=== PATIENT | male | born 1945 | race Caucasian/White ===

== ENCOUNTER 2017-01-20 16:56 | Inpatient (IN) | payer OTHER ==
[~2017-01-20] VITALS: Ht 175.3 cm; Wt 76.9 kg
--- NOTE | 2017-01-20 17:34 | EMERGENCY ROOM VISIT NOTE ---
History Report prepared by Suri: Carlito Singleton Under the Supervision of: Dr. Alyson Diamond D.O. First contact with patient: 17:16 Chief Complaint: SWELLING TO EXTREMITY Stated Complaint: EDEMA History of Present Illness The patient is a 71 year old male who presents to the Emergency Room with complaints of worsening bilateral feet swelling that started around 10 days ago. He says that the swelling has particularly worsened in the past couple days. The patient says that he had similar swelling in the past, and was hospitalized, but he does not remember what the swelling was from. The patient denies any fevers, chills, urinary symptoms, or bowel problems. He notes that he is chronically short of breath from smoking, and he does not walk around much due to that. He has a history of 2 heart attacks, and has a defibrillator and pacemaker. He does not have a history of CHF. The patient says he has has no trouble with his blood pressure, but he does not know whether he takes blood pressure medication. He does take Aspirin daily, and he wears oxygen at home. He states that he has tried a nebulizer in the past, but it did not help his breathing. He is a smoker. Source of History: patient Onset: 10 days ago Position: foot (bilateral) Quality: other (swelling) Timing: worsening Associated Symptoms: No chills, No fevers, No urinary symptoms Note: Associated symptoms: Chronically short of breath. Denies bowel problems. Review of Systems See HPI for pertinent positives & negatives. A total of 10 systems reviewed and were otherwise negative. Past Medical & Surgical Medical Problems: (1) Anemia (2) CAD (coronary artery disease) (3) CHF (congestive heart failure) (4) CKD (chronic kidney disease) (5) COPD (chronic obstructive pulmonary disease) (6) DM2 (diabetes mellitus, type 2) (7) Heart attack (8) HLD (hyperlipidemia) (9) Pacemaker Surgical Problems: (1) H/O knee surgery (2) H/O rhinoplasty (3) History of appendectomy (4) History of hip surgery Family History FHx: cancer Heart disease Social History Smoking Status: Current Every Day Smoker Alcohol Use: occasionally Marital Status: Housing Status: lives alone Occupation Status: retired Current/Historical Medications Scheduled Ascorbic Acid (Vitamin C), 500 MG PO BID Aspirin (Ecotrin), 325 MG PO DAILY Carvedilol (Coreg), 3.125 MG PO BID Cholecalciferol (Vitamin D3), 1,000 INTER.UNIT PO DAILY Digoxin (Digoxin), 0.125 MG PO MWF Ferrous Sulfate (Iron), 325 MG PO BID Furosemide (Lasix), 40 MG PO DAILY Hydralazine HCl (Hydralazine HCl), 25 MG PO TID Omeprazole (Prilosec), 20 MG PO DAILY Simvastatin (Zocor), 20 MG PO QPM Tamsulosin HCl (Tamsulosin HCl), 0.4 MG PO HS Tiotropium [place] (Spiriva Handihaler), 1 CAP INH DAILY Allergies Coded Allergies: No Known Allergies (Unverified , 01/20/17) Physical Exam Vital Signs Date Time Temp Pulse Resp B/P Pulse Ox O2 Delivery O2 Flow Rate FiO2 01/20/17 20:11 80 22 126/59 94 Room Air 01/20/17 18:09 72 22 130/83 94 Room Air 01/20/17 17:06 72 01/20/17 17:03 36.7 75 21 121/69 96 Room Air Physical Exam GENERAL: alert, well appearing, well nourished, no distress, non-toxic. Smells of tobacco smoke. EYE EXAM: normal conjunctiva, PERRL and EOM's grossly intact OROPHARYNX: no exudate, no erythema, lips, buccal mucosa, and tongue normal and mucous membranes are moist NECK: supple, no nuchal rigidity, no adenopathy, non-tender LUNGS: Decreased breath sounds with scattered faint expiratory wheezing. HEART: no murmurs, S1 normal and S2 normal ABDOMEN: abdomen soft, non-tender, normo-active bowel sounds, no masses, no rebound or guarding. BACK: Back is symmetrical on inspection and there is no deformity, no midline tenderness, no CVA tenderness. SKIN: no rashes and no bruising UPPER EXTREMITIES: upper extremities are grossly normal. LOWER EXTREMITIES: 2+ lower extremity edema. NEURO EXAM: Normal sensorium, cranial nerves II-XII grossly intact, normal speech, no gross weakness of arms, no gross weakness of legs. No drift. Finger to nose intact. Gross sensation intact. Medical Decision & Procedures ER Provider Diagnostic Interpretation: Xray results per the radiologist and my interpretation. Other results have been interpreted by the radiologist and reviewed by me. BILATERAL LOWER EXTREMITY VENOUS DOPPLER CLINICAL HISTORY: Lower extremity edema. COMPARISON STUDY: No previous studies for comparison. TECHNIQUE: Sonography of the deep venous system of the bilateral lower extremities was performed. Compression and augmentation were evaluated. FINDINGS: The bilateral common femoral, superficial femoral and popliteal veins were compressible. Augmentation was normal. Flow was shown within the deep calf vessels. IMPRESSION: No evidence of deep venous thrombus within the bilateral lower extremities. Electronically signed by: Rico Bravo M.D. 01/20/2017 7:03 PM Dictated Date/Time: 01/20/2017 7:02 PM CHEST ONE VIEW PORTABLE CLINICAL HISTORY: Shortness of breath. COMPARISON STUDY: No previous studies for comparison. FINDINGS: A left subclavian biventricular pacer is in place. There is moderate cardiomegaly. No pneumothorax is present. There is a trace right pleural effusion. Mild pulmonary edema is present. Linear bilateral opacities favor atelectasis. IMPRESSION: 1. Moderate cardiomegaly with mild pulmonary edema. 2. Trace right pleural effusion. Electronically signed by: Rico Bravo M.D. 01/20/2017 6:13 PM Dictated Date/Time: 01/20/2017 6:11 PM Laboratory Results 01/20/17 18:00 Red Blood Count 2.76, Mean Corpuscular Volume 108.7, Mean Corpuscular Hemoglobin 35.1, Mean Corpuscular Hemoglobin Concent 32.3, Mean Platelet Volume 10.0, Neutrophils (%) (Auto) 80.7, Lymphocytes (%) (Auto) 13.6, Monocytes (%) ( Auto) 4.3, Eosinophils (%) (Auto) 0.8, Basophils (%) (Auto) 0.2, Neutrophils # ( Auto) 3.91, Lymphocytes # (Auto) 0.66, Monocytes # (Auto) 0.21, Eosinophils # ( Auto) 0.04, Basophils # (Auto) 0.01 01/20/17 18:00 Test 01/20/17 18:00 White Blood Count 4.85 K/uL (4.8-10.8) Red Blood Count 2.76 M/uL (4.7-6.1) Hemoglobin 9.7 g/dL (14.0-18.0) Hematocrit 30.0 % (42-52) Mean Corpuscular Volume 108.7 fL (80-100) Mean Corpuscular Hemoglobin 35.1 pg (25-34) Mean Corpuscular Hemoglobin Concent 32.3 g/dl (32-36) Platelet Count 104 K/uL (130-400) Mean Platelet Volume 10.0 fL (7.4-10.4) Neutrophils (%) (Auto) 80.7 % Lymphocytes (%) (Auto) 13.6 % Monocytes (%) (Auto) 4.3 % Eosinophils (%) (Auto) 0.8 % Basophils (%) (Auto) 0.2 % Neutrophils # (Auto) 3.91 K/uL (1.4-6.5) Lymphocytes # (Auto) 0.66 K/uL (1.2-3.4) Monocytes # (Auto) 0.21 K/uL (0.11-0.59) Eosinophils # (Auto) 0.04 K/uL (0-0.5) Basophils # (Auto) 0.01 K/uL (0-0.2) RDW Standard Deviation 68.4 fL (36.4-46.3) RDW Coefficient of Variation 17.4 % (11.5-14.5) Immature Granulocyte % (Auto) 0.4 % Immature Granulocyte # (Auto) 0.02 K/uL (0.00-0.02) Anion Gap 7.0 mmol/L (3-11) Est Creatinine Clear Calc Drug Dose 33.8 ml/min Estimated GFR () 33.9 Estimated GFR (Non- 29.3 BUN/Creatinine Ratio 18.1 (10-20) Calcium Level 8.8 mg/dl (8.5-10.1) Troponin I 0.061 ng/ml (0-0.045) Pro-B-Type Natriuretic Peptide > 56514 pg/ml (0-900) Digoxin Level 0.6 ng/ml (0.8-2.0) Laboratory results per my review. Medications Administered Medications (Trade) Dose Ordered Sig/Sonny Route Start Time Stop Time Status Last Admin Dose Admin Furosemide/Syringe (Lasix Inj/ Syringe) 4 ml @ 4 mls/min ONE STAT IV 01/20/17 18:51 01/20/17 18:53 DC 01/20/17 20:06 4 MLS/MIN Nitroglycerin (Nitroglycerin 2% Oint) 0.5 inch NOW STAT EXT 01/20/17 18:53 4/28/17 18:54 DC 01/20/17 20:06 0.5 INCH ECG Indication: other (swelling to extremity) Rate (beats per minute): 71 Rhythm: normal sinus Findings: PVC, no acute ischemic change, other (normal axis, slight intraventricular conduction delay. QTC normal) Comparison ECG Date: no prior available ED Course 1723: The patient was evaluated in room B3B. A complete history and physical exam was performed. 1850: Ordered Ecotrin Tab 325 mg PO, Furosemide 40mg/Syringe 40 mg/Syringe 4 ml @ 4 mls/min IV. 1849: I reevaluated the patient and he has a positive troponin. The patient verbally expressed understanding and agreement of the treatment plan. The patient will be evaluated for further treatment. 1852: Ordered Nitroglycerin 2% Oint 0.5 inch EXT. 1914: I discussed the patient with Dr. Deluca - [facility] hospitalist - he will evaluate the patient for further treatment. 1955; Old records have now been faxed and available for review. Medical Decision Differential diagnosis includes but is not limited to: CHF, renal failure, DVT, cellulitis, lymphedema. Patient poor historian and no records available in EMR initially. Patient's only complaint was lower extremity edema which she stated had been worsening over the last week to 10 days. No evidence of cellulitis or trauma. Patient's ultrasound negative for DVT, however labs revealed elevated BNP and elevated troponin. Given patient's history of a ICD/by the pacemaker is indicated on his medical ID bracelet, patient likely with a depressed ejection fraction and history of congestive heart failure. Given description of worsening lower extremity edema as well as intermittent shortness of breath with exertion, likely patient with a component of acute on chronic congestive heart failure. Patient given dose of Lasix in the emergency room. The patient's troponin is more likely related to the congestive heart failure and chronic kidney disease, patient given an aspirin and nitroglycerin as a precaution. Patient with no chest pain or shortness of breath while at rest. No other evidence to suggest occult infection. Significant efforts made by staff to try and obtain outside medical records. Upon their arrival these were reviewed and patient found to have a history of chronic kidney disease as well as significant cardiac history. These are placed in the patient's chart to aid the admitting team. Patient otherwise with stable vitals here. Doubt PE, dissection, tamponade, small effusions noted on chest x-ray. Consults Time Called: 1909 Consulting Physician: Dr. Yosi Zaidi hospitalist Returned Call: 1914 I discussed the patient with Dr. Yosi Zaidi hospitalist - he will evaluate the patient for further treatment. Impression Primary Impression: Lower extremity edema Additional Impressions: CHF (congestive heart failure) Elevated troponin Acute renal failure Scribe Attestation The scribe's documentation has been prepared under my direction and personally reviewed by me in its entirety. I confirm that the note above accurately reflects all work, treatment, procedures, and medical decision making performed by me. Departure Information Dispostion Being Evaluated By Hospitalist Patient Instructions [facility] Problem Qualifiers Primary Impression: Lower extremity edema Laterality: bilateral Qualified Codes: R60.0 - Localized edema Additional Impressions: CHF (congestive heart failure) Congestive heart failure type: combined Congestive heart failure chronicity: acute on chronic Qualified Codes: I50.43 - Acute on chronic combined systolic (congestive) and diastolic (congestive) heart failure Acute renal failure Acute renal failure type: unspecified Qualified Codes: N17.9 - Acute kidney failure, unspecified
[2017-01-20] MEDS ORDERED: ASCA500 PO (18:03)
[2017-01-20] MEDS ORDERED: ASPI-560 PO (18:03)
[2017-01-20] MEDS ORDERED: FERR1TAB23 PO (18:03)
--- NOTE | 2017-01-20 18:14 | DIAGNOSTIC IMAGING REPORT ---
CHEST ONE VIEW PORTABLE CLINICAL HISTORY: Shortness of breath. COMPARISON STUDY: No previous studies for comparison. FINDINGS: A left subclavian biventricular pacer is in place. There is moderate cardiomegaly. No pneumothorax is present. There is a trace right pleural effusion. Mild pulmonary edema is present. Linear bilateral opacities favor atelectasis. IMPRESSION: 1. Moderate cardiomegaly with mild pulmonary edema. 2. Trace right pleural effusion. Electronically signed by: Rico Bravo M.D. 01/20/2017 6:13 PM Dictated Date/Time: 01/20/2017 6:11 PM
[2017-01-20 18:15] LABS: BASO % 0.2 %; BASO ABS # 0.01 K/uL (0-0.2); COMPLETE YES; EOS % 0.8 %; IG% 0.4 %; LYMPH % 13.6 %; LYMPH ABS # 0.66 K/uL (1.2-3.4); MEAN CELL VOLUME 108.7 fL (80-100); MEAN CORPUSCULAR HEMOGLOBIN 35.1 pg (25-34); MEAN CORPUSCULAR HGB CONC 32.3 g/dl (32-36); MONO % 4.3 %; NEUT % 80.7 %; PLATELET COUNT 104 K/uL (130-400); RED BLOOD COUNT 2.76 M/uL (4.7-6.1); WHITE BLOOD COUNT 4.85 K/uL (4.8-10.8)
[2017-01-20 18:31] LABS: BLOOD UREA NITROGEN 40 mg/dl (7-18); BUN/CREATININE RATIO 18.1 (10-20); CALCIUM 8.8 mg/dl (8.5-10.1); CARBON DIOXIDE 25 mmol/L (21-32); CHLORIDE 111 mmol/L (98-107); GLUCOSE 93 mg/dl (70-99); SODIUM 143 mmol/L (136-145)
[2017-01-20] MEDS ORDERED: ASPIRIN 325 MG ECTAB PO STA (18:51)
[2017-01-20] MEDS ORDERED: FUROSEMIDE INJ 40 MG in SYRINGE 0 ML IV STA (18:51)
[2017-01-20] MEDS ORDERED: NITROGLYCERIN OINT 2% 1GM PACKET EXT STA (18:53)
--- NOTE | 2017-01-20 19:04 | DIAGNOSTIC IMAGING REPORT ---
BILATERAL LOWER EXTREMITY VENOUS DOPPLER CLINICAL HISTORY: Lower extremity edema. COMPARISON STUDY: No previous studies for comparison. TECHNIQUE: Sonography of the deep venous system of the bilateral lower extremities was performed. Compression and augmentation were evaluated. FINDINGS: The bilateral common femoral, superficial femoral and popliteal veins were compressible. Augmentation was normal. Flow was shown within the deep calf vessels. IMPRESSION: No evidence of deep venous thrombus within the bilateral lower extremities. Electronically signed by: Rico Bravo M.D. 01/20/2017 7:03 PM Dictated Date/Time: 01/20/2017 7:02 PM
[2017-01-20] MEDS ORDERED: FURO-85 PO (19:49)
[2017-01-20] MEDS ORDERED: CARV6.25 PO (19:49)
[2017-01-20] MEDS ORDERED: CHOL1000 PO (19:49)
[2017-01-20] MEDS ORDERED: LNX125 PO (19:49)
[2017-01-20] MEDS ORDERED: SPRIN/30 INH (19:49)
[2017-01-20] MEDS ORDERED: HYDR-4716 PO (19:49)
[2017-01-20] MEDS ORDERED: SIMV20TA2 PO (19:49)
[2017-01-20] MEDS ORDERED: PRLSR20 PO (19:49)
[2017-01-20] MEDS ORDERED: FLM4 PO (19:49)
[2017-01-20] MEDS ORDERED: FURO40TA3 PO (19:57)
[2017-01-20] MEDS ORDERED: NITROGLYCERIN 0.4 MG SL PER TAB CHARGE SL PRN (20:00)
[2017-01-20] MEDS ORDERED: ACETAMINOPHEN 325 MG TAB PO PRN (20:00)
[2017-01-20] MEDS ORDERED: ONDANSETRON INJ 2 MG/ML 2 ML VIAL IV PRN (20:00)
--- NOTE | 2017-01-20 20:23 | History and Physical ---
History & Physical Date & Time of Service: Jan 20, 2017 at 20:04 Chief Complaint: EDEMA Primary Care Physician: No Doctor, Assigned History of Present Illness Source: patient, clinic records, hospital records Patient seen and examined. 71 year old male with PMHx of CAD, CHF s/p ICD, diet controlled DM2, HTN, HLD, COPD, tobacco abuse presents to the ED complaining of leg swelling x 3 days. [facility] noticed his BLLE edema and referred him to the ED for further workup. Patient reports in the last several weeks he has started to notice a little increased swelling however in the last three days he reports it has gotten much worse. His shoes do not fit and he has been wearing sandals. He states he has been doubling his lasix and he continues to have the edema. He reports chronic SOB that he attributes to his COPD and continued smoking. He denies fevers, chills, URI symptoms, chest pain, nausea, vomiting, diarrhea, dysuria, calf pain. He reports he just recently learned that ramen noodles have salt in them, before that he was eating them on about a daily basis. He does not watch his fluid intake. He does not weigh himself often but believes he has gained weight. He follows with the local [facility] for primary care and sees the [facility] in [place] yearly for cardiology. In the ED VS are stable, BNP >27654, Troponin is 0.01. EKG is paced rhythm. He received Lasix, Nitro and Aspirin. He is resting comfortably. He will be admitted for further workup and treatment. Past Medical/Surgical History Medical Problems: (1) Anemia Status: Chronic (2) CAD (coronary artery disease) Status: Chronic (3) CHF (congestive heart failure) Status: Chronic (4) CKD (chronic kidney disease) Status: Chronic (5) COPD (chronic obstructive pulmonary disease) Status: Chronic (6) DM2 (diabetes mellitus, type 2) Status: Chronic (7) Heart attack Status: Resolved (8) HLD (hyperlipidemia) Status: Chronic (9) Pacemaker Status: Chronic Surgical Problems: (1) H/O knee surgery Status: Chronic (2) H/O rhinoplasty Status: Chronic (3) History of appendectomy Status: Chronic (4) History of hip surgery Status: Chronic Family History FHx: cancer Heart disease Social History Smoking Status: Current Every Day Smoker Alcohol Use: occasionally Marital Status: Housing status: lives alone Occupational Status: retired Allergies Coded Allergies: No Known Allergies (Unverified , 01/20/17) Home Medications Scheduled Ascorbic Acid (Vitamin C), 500 MG PO BID Aspirin (Ecotrin), 325 MG PO DAILY Carvedilol (Coreg), 3.125 MG PO BID Cholecalciferol (Vitamin D3), 1,000 INTER.UNIT PO DAILY Digoxin (Digoxin), 0.125 MG PO MWF Ferrous Sulfate (Iron), 325 MG PO BID Furosemide (Lasix), 40 MG PO DAILY Hydralazine HCl (Hydralazine HCl), 25 MG PO TID Omeprazole (Prilosec), 20 MG PO DAILY Simvastatin (Zocor), 20 MG PO QPM Tamsulosin HCl (Tamsulosin HCl), 0.4 MG PO HS Tiotropium [place] (Spiriva Handihaler), 1 CAP INH DAILY Review of Systems Constitutional: No chills, No fever Eyes: No worsening of vision ENT: No nasal symptoms Respiratory: + shortness of breath, No cough Cardiovascular: + edema, No chest pain, No palpitations Abdomen: No constipation, No diarrhea, No nausea, No pain, No vomiting Musculoskeletal: + swelling, No calf pain Genitourinary - Male: No dysuria Neurologic: No numbness/tingling, No vertigo Psychiatric: No depression symptoms Endocrine: No excessive thirst, No fatigue Hematologic / Lymphatic: No abnormal bleeding/bruising, No clotting problems Integumentary: No itch, No rash Allergic / Immunologic: No environmental allergies Physical Exam Vital Signs Date Time Temp Pulse Resp B/P Pulse Ox O2 Delivery O2 Flow Rate FiO2 01/20/17 18:09 72 22 130/83 94 Room Air 01/20/17 17:03 36.7 75 21 121/69 96 Room Air General Appearance: + pertinent finding (Very pleasant WD/WN 71 year old male lying in bed in NAD ) Head: normocephalic, atraumatic Eyes: PERRL, EOMI, sclerae normal ENT: hearing grossly normal, pharynx normal Neck: supple, no JVD Respiratory/Chest: chest non-tender, no respiratory distress, no accessory muscle use, + pertinent finding (Coarse breath sounds, trace rhonchi/wheezes likely secondary to COPD/tobacco abuse ) Cardiovascular: regular rate, rhythm, no gallop, no JVD, no murmur, normal peripheral pulses Abdomen/GI: normal bowel sounds, non tender, soft Back: normal inspection, no muscle spasm Extremities/Musculoskelatal: no calf tenderness, normal capillary refill, + pedal edema (+2, BL ) Neurologic/Psych: no motor/sensory deficits, alert, oriented x 3 Skin: normal color, warm/dry, no rash Lymphatic: no adenopathy Diagnostics Laboratory Results Results Past 24 Hours Test 01/20/17 18:00 Range/Units White Blood Count 4.85 4.8-10.8 K/uL Red Blood Count 2.76 4.7-6.1 M/uL Hemoglobin 9.7 14.0-18.0 g/dL Hematocrit 30.0 42-52 % Mean Corpuscular Volume 108.7 80-100 fL Mean Corpuscular Hemoglobin 35.1 25-34 pg Mean Corpuscular Hemoglobin Concent 32.3 32-36 g/dl Platelet Count 104 130-400 K/uL Mean Platelet Volume 10.0 7.4-10.4 fL Neutrophils (%) (Auto) 80.7 % Lymphocytes (%) (Auto) 13.6 % Monocytes (%) (Auto) 4.3 % Eosinophils (%) (Auto) 0.8 % Basophils (%) (Auto) 0.2 % Neutrophils # (Auto) 3.91 1.4-6.5 K/uL Lymphocytes # (Auto) 0.66 1.2-3.4 K/uL Monocytes # (Auto) 0.21 0.11-0.59 K/uL Eosinophils # (Auto) 0.04 0-0.5 K/uL Basophils # (Auto) 0.01 0-0.2 K/uL RDW Standard Deviation 68.4 36.4-46.3 fL RDW Coefficient of Variation 17.4 11.5-14.5 % Immature Granulocyte % (Auto) 0.4 % Immature Granulocyte # (Auto) 0.02 0.00-0.02 K/uL Sodium Level 143 136-145 mmol/L Potassium Level 4.0 3.5-5.1 mmol/L Chloride Level 111 98-107 mmol/L Carbon Dioxide Level 25 21-32 mmol/L Anion Gap 7.0 3-11 mmol/L Blood Urea Nitrogen 40 7-18 mg/dl Creatinine 2.20 0.60-1.40 mg/dl Est Creatinine Clear Calc Drug Dose 33.8 ml/min Estimated GFR () 33.9 Estimated GFR (Non- 29.3 BUN/Creatinine Ratio 18.1 10-20 Random Glucose 93 70-99 mg/dl Calcium Level 8.8 8.5-10.1 mg/dl Troponin I 0.061 0-0.045 ng/ml Pro-B-Type Natriuretic Peptide > 87490 0-900 pg/ml Diagnostic Radiology CXR Per radiologist read: IMPRESSION: 1. Moderate cardiomegaly with mild pulmonary edema. 2. Trace right pleural effusion. DOPPLER US Per radiologist read: IMPRESSION: No evidence of deep venous thrombus within the bilateral lower extremities. EKG Dual paced rhythm 70 BPM, QTc 455 Impression Assessment and Plan 71 year old male who follows with the [facility] presents to the ED complaining of worsening peripheral edema despite increased lasix use x 3 day s PERIPHERAL EDEMA likely ACUTE ON CHRONIC CHF EXACERBATION -Admit to tele -[facility] severe systolic dysfunction s/p ICD, taking Lasix 40mg daily but increase to 80mg daily this week. unsure of Diastolic component of CHF -Presents with BNP >57086, peripheral edema. CXR with mild pulmonary congestion , Doppler US negative for DVT -Update echo -interrogate pacemaker -serial Jose Antonio, EKGs -Lasix 40mg IV given in ED will continue with 40mg IV BID -continue BB, digoxin -check digoxin level -I&Os, daily weights -AHA, low sodium diet, 2000ml fluid restriction -cardiology consult placed for further recommendations -CBC, PRP, Mg in AM -Monitor renal function closely - has underlying CKD ELEVATED TROPONIN H/O CAD -denies chest pain, new SOB -EKG paced rhythm -Troponin 0.061 -? troponin leak -Serial Jose Antonio, EKGs -update Echo -continue ASA, Statin, BB -monitor in tele CKD STAGE 3 -Crea 2.2 baseline when compared to [facility] -follow PRP -avoid nephrotoxic agents as able ANEMIA OF CHRONIC DISEASE -Hgb 9.5 baseline per [facility] records on paper chart -continue iron, vitamin C -follow H&H HTN -stable -continue Hydralazine, BB DIET CONTROLLED DM2 -update a1c -consistent carb diet TOBACCO ABUSE/COPD -Cessation counseling given -Nicotine patch ordered -continue home inhalers GERD -continue PPI BPH -continue Flomax DVT PROPHYLAXIS: Sq heparin CODE STATUS: FULL CODE DISPO:In my clinical judgment this beneficiary meets acute admission criteria, established by [facility], that includes being hospitalized through two midnights. Patient seen in collaboration with Dr. Deluca Attending Note: Patient is a 71 yr old male with PMH of CAD, CHF S/P ICD, CKD, COPD and other comorbidities presents from [facility] for evaluation of worsening B/L Leg swelling and SOB on exertion. He is on oxygen 2l NC at baseline but not very complaint. He has been doubling his oral diuretics at home since last 3 days. He does not watch his fluid/salt intake. His BNP is elevated and CXR is consistent with mild pulmonary edema. Venous doppler is negative for DVT Physical Exam: Vitals signs as noted above General Appearance:Moderately built and nourished, no apparent distress Head: normocephalic, Atraumatic Respiratory/Chest: Coarse breath sounds, No accessory muscle use Cardiovascular: S1, S2, No murmur Abdomen/GI:Soft, Non tender, Bowel sounds present Extremities/Musculoskelatal:+ B/L LE edema Neurologic/Psych:AAOX3, grossly no focal neurological deficits Assessment and Plan: Acute on chronic CHF Exacerbation Start IV Lasix 40 mg BID Check ECHO I/Os, daily weight Monitor electrolytes Fluid/Salt restriction Oxygen support continue BB, digoxin Elevated Troponin: Denies chest pain Insetting of CKD and CHF Trend troponin Check Resting ECHO for wall motion abnormality continue ASA, Statin, BB I personally reviewed the record. Patient is interviewed and examined at bedside. Patient's care is coordinated with Moira Benites PA-C. Please refer to the documentation above for details of patient's presentation and for discussion of other issues. VTE Prophylaxis VTE Risk Assessment Done? Y/N: Yes Risk Level: Moderate
[2017-01-20 20:59] VITALS: BP 132/67; PULSE 77; TEMP 36.5; O2SAT 94; Ht 175.3 cm; Wt 76.9 kg
[2017-01-20 21:35] LABS: INR 1.1 (0.9-1.1); PROTHROMBIN TIME (PATIENT) 12.1 SECONDS (9.0-12.0)
[2017-01-20] MEDS: ASCORBIC ACID 500 MG TAB PO SCH (22:56)
[2017-01-20] MEDS: SIMVASTATIN 20 MG TAB PO SCH (22:56)
[2017-01-20] MEDS: CARVEDILOL 3.125 MG TAB PO SCH (22:56)
[2017-01-20] MEDS: TAMSULOSIN HCL 0.4 MG CAP PO SCH (22:56)
[2017-01-20] MEDS: FERROUS SULFATE 325 MG TAB PO SCH (22:56)
[2017-01-20 23:18] LABS: URINE APPEARANCE CLEAR (CLEAR); URINE BILIRUBIN NEG (NEG); URINE COLOR YELLOW; URINE EPITHELIAL CELL AUTO 0-5 /lpf (0-5); URINE NITRITE NEG (NEG); URINE PH 5.5 (4.5-7.5); URINE SPECIFIC GRAVITY 1.008 (1.000-1.030); UROBILINOGEN NEG (NEG); ZZUR CULT IF INDIC CLEAN CATCH NO
[2017-01-20] MEDS: HEPARIN SOD 5000 UNIT/0.5 ML CARP SQ SCH (23:33)
[2017-01-20 23:35] VITALS: BP 109/56; PULSE 77; TEMP 36; O2SAT 93
[2017-01-20 23:35] LABS: MANUAL MICROSCOPIC REQUIRED? NO; REVIEW REQ? NO
[2017-01-21 01:19] LABS: CKMB/CK RATIO 1.5 (0-3.0)
[2017-01-21 03:56] VITALS: BP 115/64; PULSE 70; TEMP 36.6; O2SAT 93
[2017-01-21] MEDS ORDERED: FUROSEMIDE 40 MG/4 ML VIAL ONE (04:08)
[2017-01-21] MEDS ORDERED: ALBUT/IPRATROP 3MG/0.5MG NEB 3 ML VIAL INH PRN (04:15)
[2017-01-21] MEDS ORDERED: FUROSEMIDE INJ 40 MG in SYRINGE 0 ML IV ONE (04:15)
[2017-01-21] MEDS: HEPARIN SOD 5000 UNIT/0.5 ML CARP SQ SCH ×3 (05:47→20:53)
[2017-01-21 06:42] LABS: HEMATOCRIT 27.9 % (42-52); MEAN CELL VOLUME 107.7 fL (80-100); MEAN CORPUSCULAR HEMOGLOBIN 35.1 pg (25-34); MEAN CORPUSCULAR HGB CONC 32.6 g/dl (32-36); MEAN PLATELET VOLUME 11.5 fL (7.4-10.4); PLATELET COUNT 112 K/uL (130-400); RED BLOOD COUNT 2.59 M/uL (4.7-6.1); WHITE BLOOD COUNT 4.51 K/uL (4.8-10.8)
[2017-01-21 07:19] LABS: BUN/CREATININE RATIO 20.7 (10-20); CALCIUM 8.5 mg/dl (8.5-10.1); CREATININE 2.1 mg/dl (0.60-1.40); MAGNESIUM 2.2 mg/dl (1.8-2.4)
[2017-01-21 07:23] LABS: ESTIMATED AVERAGE GLUCOSE 126 mg/dl; HA1C FLAG Normal (Normal)
[2017-01-21 07:30] VITALS: BP 109/63; PULSE 76; TEMP 36.7; O2SAT 95
[2017-01-21 07:30] LABS: CHOLESTEROL/HDL RATIO 2.3; CKMB/CK RATIO 1.7 (0-3.0)
[2017-01-21] MEDS ORDERED: PNEUMOCOCCAL ADMINISTRATION CHARGE ONE (08:00)
[2017-01-21] MEDS ORDERED: PNEUMOCOCCAL POLYSACCHARIDES 25 MCG/0.5 ML VIAL/SYR IM. ONE (08:00)
[2017-01-21] MEDS: NICOTINE 14 MG/24 HR TDSY TD SCH (09:00)
[2017-01-21] MEDS: TIOTROPIUM BROMIDE 5 PUFF/90 MCG INH INH SCH (09:34)
[2017-01-21] MEDS: FUROSEMIDE INJ 40 MG in SYRINGE 0 ML IV SCH ×2 (09:35→17:26)
[2017-01-21] MEDS: CARVEDILOL 3.125 MG TAB PO SCH ×2 (09:36→20:51)
[2017-01-21] MEDS: ASCORBIC ACID 500 MG TAB PO SCH ×2 (09:36→20:51)
[2017-01-21] MEDS: CHOLECALCIFEROL 1000 INTER.UNIT TAB PO SCH (09:37)
[2017-01-21] MEDS: PANTOprazole SOD 40 MG TAB PO SCH (09:37)
[2017-01-21] MEDS: FERROUS SULFATE 325 MG TAB PO SCH ×2 (09:38→20:51)
[2017-01-21] MEDS: ASPIRIN 325 MG ECTAB PO SCH (09:38)
--- NOTE | 2017-01-21 11:08 | CARDIOLOGY CONSULTATION ---
DATE OF CONSULTATION: 01/21/2017 CONSULTATION FOR: Dyan aviles. REASON FOR CONSULTATION: Shortness of breath. HISTORY OF PRESENT ILLNESS: This is a 71-year-old male patient who has had most of his health care through the ID system in [facility]. He is a type 2 diabetic with a history of hypertension and tobacco associated lung disease. He continues to smoke at least half a pack of cigarettes daily. He has a history of coronary artery disease that dates back to 1994 when he states he had a heart attack. At that time, he states that he had an angioplasty. He states that in 2014, he was scheduled to undergo colonoscopy and instead received an ICD pacemaker at the [facility] in [place]. Recently, he has had increased shortness of breath and dyspnea and he has noted some lower extremity edema. He presented to the Emergency Department and was found to be in congestive heart failure. B-natriuretic peptide was greater than 35,000. His cardiac markers are negative and his EKG shows a paced rhythm. ALLERGIES: No known medical allergies. PAST MEDICAL HISTORY: As described above, he has ischemic heart disease and ischemic cardiomyopathy with an ICD in place. He does not relate a previous history of congestive heart failure. 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 He has tobacco associated COPD and diabetes. SOCIAL HISTORY: He continues to smoke half a pack of cigarettes daily. He is and lives alone. FAMILY MEDICAL HISTORY: Noncontributory. REVIEW OF SYSTEMS: A 10-point review of systems is negative except for the history of chief complaint. PHYSICAL EXAMINATION: GENERAL: He is alert and oriented. VITAL SIGNS: Blood pressure is 110/70 and pulse is regular at 75 beats per minute. He is afebrile. HEENT: He is normocephalic. Pupils are equal and reactive to light. Mucous membranes moist. NECK: The neck veins are distended. Carotids have good upstrokes bilaterally without bruits. Thyroid is nonpalpable. RESPIRATORY: Breath sounds equal bilaterally and clear to auscultation. CARDIOVASCULAR: Heart has a regular rhythm. There is an S4 present. No S3 and no murmurs. GASTROINTESTINAL: Abdomen is soft and nontender without organomegaly. EXTREMITIES: Have pitting edema to the mid calves bilaterally. NEUROLOGIC: Grossly intact. SKIN: Warm to touch. LYMPH NODES: Negative to palpation. IMPRESSION: 1. Congestive heart failure. 2. Ischemic cardiomyopathy. 3. Implantable cardioverter defibrillator. 4. Diabetes mellitus. 5. Cigarette smoking with chronic obstructive pulmonary disease. RECOMMENDATIONS: I would continue to diurese the patient to a dry weight. If his creatinine starts to elevate, then may have nephrology see him. I will review his echocardiogram when it is complete. LUCILA
[2017-01-21 11:13] VITALS: BP 116/65; PULSE 69; TEMP 36.8; O2SAT 96
--- NOTE | 2017-01-21 13:13 | Progress Note ---
Medicine Progress Note Date & Time of Visit: Jan 21, 2017 at 12:59. Subjective Pt was seen and examined Pt lying in bed with no distress he said that his breathing seems a little bit better today Denies any chest pain, palpitation, dizziness Objective Last 8 Hrs Date Time Temp Pulse Resp B/P Pulse Ox O2 Delivery O2 Flow Rate FiO2 01/21/17 11:13 36.8 69 18 116/65 96 01/21/17 08:00 Nasal Cannula 01/21/17 07:30 36.7 76 18 109/63 95 Physical Exam: General- No acute distress Head- atraumatic Eyes- PERRL, EOMI ENT- oropharynx clear Neck- supple, no JVD Lungs- Coarse BS Heart- regular rhythm; no murmur Abdomen- normal bowel sounds, soft Extremities- no calf tenderness, +edema Neuro- alert, oriented x 3; PERRL, EOM Skin- warm & dry Laboratory Results: Last 24 Hours Test 01/20/17 18:00 01/20/17 22:38 01/21/17 00:39 01/21/17 06:23 White Blood Count 4.85 K/uL 4.51 K/uL Red Blood Count 2.76 M/uL 2.59 M/uL Hemoglobin 9.7 g/dL 9.1 g/dL Hematocrit 30.0 % 27.9 % Mean Corpuscular Volume 108.7 fL 107.7 fL Mean Corpuscular Hemoglobin 35.1 pg 35.1 pg Mean Corpuscular Hemoglobin Concent 32.3 g/dl 32.6 g/dl Platelet Count 104 K/uL 112 K/uL Mean Platelet Volume 10.0 fL 11.5 fL Neutrophils (%) (Auto) 80.7 % Lymphocytes (%) (Auto) 13.6 % Monocytes (%) (Auto) 4.3 % Eosinophils (%) (Auto) 0.8 % Basophils (%) (Auto) 0.2 % Neutrophils # (Auto) 3.91 K/uL Lymphocytes # (Auto) 0.66 K/uL Monocytes # (Auto) 0.21 K/uL Eosinophils # (Auto) 0.04 K/uL Basophils # (Auto) 0.01 K/uL RDW Standard Deviation 68.4 fL 68.2 fL RDW Coefficient of Variation 17.4 % 17.4 % Immature Granulocyte % (Auto) 0.4 % Immature Granulocyte # (Auto) 0.02 K/uL Prothrombin Time 12.1 SECONDS Prothromb Time International Ratio 1.1 Activated Partial Thromboplast Time 27.1 SECONDS Partial Thromboplastin Ratio 1.0 Sodium Level 143 mmol/L 145 mmol/L Potassium Level 4.0 mmol/L 4.0 mmol/L Chloride Level 111 mmol/L 111 mmol/L Carbon Dioxide Level 25 mmol/L 25 mmol/L Anion Gap 7.0 mmol/L 9.0 mmol/L Blood Urea Nitrogen 40 mg/dl 44 mg/dl Creatinine 2.20 mg/dl 2.10 mg/dl Est Creatinine Clear Calc Drug Dose 33.8 ml/min 32.7 ml/min Estimated GFR () 33.9 35.9 Estimated GFR (Non- 29.3 31.0 BUN/Creatinine Ratio 18.1 20.7 Random Glucose 93 mg/dl 119 mg/dl Calcium Level 8.8 mg/dl 8.5 mg/dl Troponin I 0.061 ng/ml 0.064 ng/ml 0.053 ng/ml Pro-B-Type Natriuretic Peptide > 05513 pg/ml Digoxin Level 0.6 ng/ml Urine Color YELLOW Urine Appearance CLEAR Urine pH 5.5 Urine Specific [place] 1.008 Urine Protein NEG Urine Glucose (UA) NEG Urine Ketones NEG Urine Occult Blood NEG Urine Nitrite NEG Urine Bilirubin NEG Urine Urobilinogen NEG Urine Leukocyte Esterase TRACE Urine WBC (Auto) 1-5 /hpf Urine RBC (Auto) 0-4 /hpf Urine Hyaline Casts (Auto) 0 /lpf Urine Epithelial Cells (Auto) 0-5 /lpf Urine Bacteria (Auto) NEG Total Creatine Kinase 165 U/L 151 U/L Creatine Kinase MB 2.4 ng/ml 2.6 ng/ml Creatine Kinase MB Ratio 1.5 1.7 Estimated Average Glucose 126 mg/dl Hemoglobin A1c 6.0 % Magnesium Level 2.2 mg/dl Triglycerides Level 35 mg/dl Cholesterol Level 62 mg/dl HDL Cholesterol 27 mg/dl LDL Cholesterol, Calculated 28 mg/dl VLDL Cholesterol, Calculated 7 mg/dl Cholesterol/HDL Ratio 2.3 Test 01/21/17 06:40 Bedside Glucose 128 mg/dl Assessment & Plan ACUTE ON CHRONIC CHF EXACERBATION -Presents with BNP >17932, peripheral edema. CXR with mild pulmonary congestion , Doppler US negative for DVT -interrogate pacemaker -Troponin trending down -Continue IV lasix BID -continue BB, digoxin - Monitor I/O -cardiology on board, recommend to continue diuresis to dry wt -Echo Pending -Monitor BMP - Continue monitor to telemetry ELEVATED TROPONIN possible related to CKD -denies chest pain -EKG paced rhythm -CM trending down - Echo pending CKD STAGE 3 -Crea 2.2 baseline [facility] -follow PRP -avoid nephrotoxic agents as able ANEMIA OF CHRONIC DISEASE Stable continue monitor HTN -stable -continue Hydralazine, BB DIET CONTROLLED DM2 -update a1c -consistent carb diet TOBACCO ABUSE/COPD -Cessation counseling given -Nicotine patch ordered -continue home inhalers GERD -continue PPI BPH -continue Flomax DVT PROPHYLAXIS: Sq heparin CODE STATUS: FULL CODE Consultants: cardio Current Inpatient Medications: Current Inpatient Medications Medications (Trade) Dose Ordered Sig/Sonny Route Start Time Stop Time Status Last Admin Dose Admin Heparin Sodium (Porcine) (Heparin Sq 5000 Unit/0.5ml) 5,000 unit Q8 SQ 01/20/17 22:00 02/19/17 21:59 01/21/17 09:41 5,000 UNIT Acetaminophen (Tylenol Tab) 650 mg Q4H PRN PO 01/20/17 20:00 02/19/17 19:59 Ondansetron HCl (Zofran Inj) 4 mg Q6H PRN IV 01/20/17 20:00 02/19/17 19:59 Nitroglycerin (Nitrostat Tab) 0.4 mg UD PRN SL 01/20/17 20:00 02/19/17 19:59 Ascorbic Acid (Vitamin C Tab) 500 mg BID PO 01/20/17 21:00 02/19/17 20:59 01/21/17 09:36 500 MG Aspirin (Ecotrin Tab) 325 mg DAILY PO 01/21/17 09:00 02/20/17 08:59 01/21/17 09:38 325 MG Carvedilol (Coreg Tab) 3.125 mg BID PO 01/20/17 21:00 02/19/17 20:59 01/21/17 09:36 3.125 MG Cholecalciferol (Vitamin D Tab) 1,000 inter.unit DAILY PO 01/21/17 09:00 02/20/17 08:59 01/21/17 09:37 1,000 INTER.UNIT Digoxin (Lanoxin Tab) 0.125 mg MoWeFr@1600 PO 01/23/17 16:00 02/22/17 15:59 Hydralazine HCl (Apresoline Tab) 25 mg TID PO 01/20/17 21:00 02/19/17 20:59 01/21/17 09:36 25 MG Simvastatin (Zocor Tab) 20 mg QPM PO 01/20/17 21:00 02/19/17 20:59 01/20/17 22:56 20 MG Tamsulosin HCl (Flomax Cap) 0.4 mg HS PO 01/20/17 21:00 02/19/17 20:59 01/20/17 22:56 0.4 MG Tiotropium [place] (Spiriva Handihaler Inhaler) 1 puff DAILY INH 01/21/17 09:00 02/20/17 08:59 01/21/17 09:34 1 PUFF Ferrous Sulfate (Feosol Tab) 325 mg BID PO 01/20/17 21:00 02/19/17 20:59 01/21/17 09:38 325 MG Pantoprazole Sodium 40 mg 40 mg DAILY PO 01/21/17 09:00 02/20/17 08:59 01/21/17 09:37 40 MG Furosemide/Syringe (Lasix Inj/ Syringe) 4 ml @ 4 mls/min BID17 IV 01/21/17 09:00 02/20/17 08:59 01/21/17 09:35 4 MLS/MIN Nicotine (Nicoderm Cq 14MG Patch) 1 patch QAM TD 01/21/17 09:00 02/20/17 08:59 Miscellaneous (Remove Nicoderm Patch) 1 ea HS N/A 01/20/17 21:00 02/19/17 20:59 Albuterol/ Ipratropium (Duoneb) 3 ml Q4R PRN INH 01/21/17 04:15 02/20/17 04:14
--- NOTE | 2017-01-21 13:51 | ECHOCARDIOGRAM REPORT ---
*NOTICE TO RECEIVING CONSTITUTION PARTY AGENCY This information is strictly Confidential and protected under [place] law. [place] law prohibits you from making any further disclosure of this information unless further disclosure is expressly permitted by the written consent of the person to whom it pertains or is authorized by law. A general authorization for the release of medical or other information is not sufficient for this purpose. Hospital accepts no responsibility if the information is made available to any other person, INCLUDING THE PATIENT. Interpretation Summary * Name: MINA GARDNER Study Date: 01/21/2017 06:35 AM BP: 115/64 mmHg * Patient Location: C.2T\S\E220\S\1 HR: 70 * : 1945 (M/d/yyyy) Gender: Male Height: 69 in * Age: 71 yrs Ethnicity: CA Weight: 187 lb * Ordering Physician: Moira Benites * Performed By: Anna Dee * * Reason For Study: CHF * BSA: 2.0 m2 * -- Conclusions -- * The left ventricle is severely dilated. * There is global thinning of the left ventricular cowan. * Left ventricular systolic function is severely reduced. * Ejection Fraction = <15%. * Spontaneous contrast is noted consistent with low flow state. * The right ventricular systolic function is moderately reduced. * The left atrial size is normal. * Right atrial size is normal. * There is mild to moderate mitral regurgitation. * There is mild tricuspid regurgitation. Procedure Details * A complete two-dimensional transthoracic echocardiogram was performed (2D, M-mode, Doppler and color flow Doppler). Left Ventricle * The left ventricle is severely dilated. * There is no thrombus. * Spontaneous contrast is noted consistent with low flow state. * There is global thinning of the left ventricular cowan. * Ejection Fraction = <15%. * Left ventricular systolic function is severely reduced. Right Ventricle * The right ventricle is moderately dilated. * There is a pacemaker lead in the right ventricle. * The right ventricular systolic function is moderately reduced. Atria * The left atrial size is normal. * Right atrial size is normal. Mitral Valve * The mitral valve leaflets appear thickened, but open well. * There is mild to moderate mitral regurgitation. Tricuspid Valve * The tricuspid valve is not well visualized, but is grossly normal. * There is mild tricuspid regurgitation. Aortic Valve * The aortic valve is tricuspid. The leaflet thickness if normal. There is no aortic stenosis, and no significant insufficiency. * The aortic valve opens well. * Aortic stenosis is absent. * There is no significant aortic regurgitation. Pulmonic Valve * The pulmonic valve is not well visualized. Great Vessels * The aortic root and proximal ascending aorta are normal sized. Pericardium/Pleural * There is no pericardial effusion. MMode 2D Measurements and Calculations IVSd 1.5 cm IVSs 1.8 cm LVIDd 7.7 cm LVIDs 7.1 cm LVPWd 10 cm LVPWs 1.1 cm IVS/LVPW 1.5 FS 8.2 % EDV(Teich) 319.4 ml ESV(Teich) 263.6 ml EF(Teich) 17.5 % EDV(cubed) 462.4 ml ESV(cubed) 357.6 ml EF(cubed) 22.7 % % IVS thick 22.5 % % LVPW thick 14.0 % LV mass(C)d 506.0 grams LV mass(C)dI 252.0 grams/m\S\2 LV mass(C)s 552.7 grams LV mass(C)sI 275.3 grams/m\S\2 SV(Teich) 55.9 ml SI(Teich) 27.8 ml/m\S\2 SV(cubed) 104.8 ml SI(cubed) 52.2 ml/m\S\2 EPSS 2.2 cm ACS 1.4 cm LA dimension 5.1 cm asc Aorta Diam 2.9 cm LVOT diam 2.1 cm LVOT area 3.4 cm\S\2 LVAd ap4 70.6 cm\S\2 LVLd ap4 11.2 cm EDV(MOD-sp4) 362.9 ml EDV(sp4-el) 377.1 ml LVAs ap4 64.5 cm\S\2 LVLs ap4 11.2 cm ESV(MOD-sp4) 302.4 ml ESV(sp4-el) 313.6 ml EF(MOD-sp4) 16.7 % EF(sp4-el) 16.8 % LVAd ap2 66.6 cm\S\2 LVLd ap2 11.7 cm EDV(MOD-sp2) 309.2 ml EDV(sp2-el) 321.7 ml LVAs ap2 61.5 cm\S\2 LVLs ap2 11.7 cm ESV(MOD-sp2) 257.5 ml ESV(sp2-el) 274.7 ml EF(MOD-sp2) 16.7 % EF(sp2-el) 14.6 % LVLd %diff 4.1 % EDV(MOD-bp) 346.6 ml LVLs %diff 3.7 % ESV(MOD-bp) 289.7 ml EF(MOD-bp) 16.4 % SV(MOD-sp4) 60.5 ml SI(MOD-sp4) 30.2 ml/m\S\2 SV(MOD-sp2) 51.7 ml SI(MOD-sp2) 25.7 ml/m\S\2 SV(MOD-bp) 56.9 ml SI(MOD-bp) 28.3 ml/m\S\2 SV(sp4-el) 63.5 ml SI(sp4-el) 31.6 ml/m\S\2 SV(sp2-el) 47.0 ml SI(sp2-el) 23.4 ml/m\S\2 Doppler Measurements and Calculations MV E max garett 71.3 cm/sec MV A max garett 37.0 cm/sec MV E/A 1.9 MV dec time 0.28 sec Ao V2 max 116.3 cm/sec Ao max PG 5.4 mmHg Ao max PG (full) 3.6 mmHg JOHANN(V,A) 2.0 cm\S\2 JOHANN(V,D) 2.0 cm\S\2 LV V1 max PG 1.8 mmHg LV V1 max 67.1 cm/sec MR max garett 471.6 cm/sec MR max PG 89.1 mmHg MR mean garett 342.5 cm/sec MR mean PG 55.1 mmHg MR VTI 169.7 cm PA V2 max 35.5 cm/sec PA max PG 0.50 mmHg TR max garett 349.6 cm/sec
[2017-01-21 15:48] VITALS: BP 106/66; PULSE 65; TEMP 36.4; O2SAT 99
[2017-01-21 19:25] VITALS: BP 112/62; PULSE 71; TEMP 36.4; O2SAT 92
[2017-01-21] MEDS: TAMSULOSIN HCL 0.4 MG CAP PO SCH (20:51)
[2017-01-21] MEDS: SIMVASTATIN 20 MG TAB PO SCH (20:51)
[2017-01-21 23:41] VITALS: BP 108/57; PULSE 74; TEMP 36.4; O2SAT 94
[2017-01-22] VITALS (7 sets, daily range): BP systolic 109–120; BP diastolic 63–75; PULSE 60–68; TEMP 36.4–36.6; O2SAT 94–100
[2017-01-22] MEDS: HEPARIN SOD 5000 UNIT/0.5 ML CARP SQ SCH ×3 (06:26→21:44)
[2017-01-22] MEDS: FERROUS SULFATE 325 MG TAB PO SCH ×2 (07:26→21:42)
[2017-01-22] MEDS: ASPIRIN 325 MG ECTAB PO SCH (07:26)
[2017-01-22] MEDS: CARVEDILOL 3.125 MG TAB PO SCH ×2 (07:27→21:42)
[2017-01-22] MEDS: TIOTROPIUM BROMIDE 5 PUFF/90 MCG INH INH SCH (07:27)
[2017-01-22] MEDS: PANTOprazole SOD 40 MG TAB PO SCH (07:27)
[2017-01-22] MEDS: CHOLECALCIFEROL 1000 INTER.UNIT TAB PO SCH (07:27)
[2017-01-22] MEDS: ASCORBIC ACID 500 MG TAB PO SCH ×2 (07:28→23:31)
[2017-01-22] MEDS: NICOTINE 14 MG/24 HR TDSY TD SCH (07:31)
[2017-01-22] MEDS: FUROSEMIDE INJ 40 MG in SYRINGE 0 ML IV SCH ×2 (07:42→17:54)
[2017-01-22 09:38] LABS: CALCIUM 8.5 mg/dl (8.5-10.1)
[2017-01-22 09:41] LABS: BUN/CREATININE RATIO 20.1 (10-20); CREATININE 2.3 mg/dl (0.60-1.40); POTASSIUM 3.8 mmol/L (3.5-5.1)
[2017-01-22] MEDS ORDERED: LISINOPRIL 2.5 MG TAB PO ONE (11:15)
--- NOTE | 2017-01-22 11:42 | PROGRESS NOTE ---
DATE: 01/22/2017 SUBJECTIVE: This is a 71-year-old type 2 diabetic, who continues to smoke cigarettes and has a history of ischemic heart disease with ischemic cardiomyopathy [facility] He was admitted with congestive heart failure and his echocardiogram on this admission reveals severe LV dysfunction with an estimated left ventricular ejection fraction of under 15%. The patient has had a large diuresis since admission to the hospital and his weight is declining. So far, his renal function is holding steady with a creatinine of approximately 2.3. Overall, he feels better. I did have a long discussion with him this morning regarding the need to stop smoking and to have care for his heart disease. OBJECTIVE: VITAL SIGNS: Blood pressure is 120/60, pulse is regular at 65. He is afebrile. HEENT: He is normocephalic. Pupils are equal and reactive to light. Mucous membranes are moist. NECK: The neck veins are distended. Carotids have good upstrokes bilaterally without bruits. Thyroid is nonpalpable. RESPIRATORY: Breath sounds are equal bilaterally and clear to auscultation. CARDIOVASCULAR: Heart has a regular rhythm. There is a summation gallop. GASTROINTESTINAL: Abdomen is soft and nontender without organomegaly. EXTREMITIES: Have edema around the feet. NEUROLOGIC: Grossly intact. SKIN: Warm to touch. LYMPH NODES: Negative to palpation. LABORATORY DATA: Potassium is 3.8, creatinine is 2.3. IMPRESSION: 1. Acute on chronic systolic heart failure. 2. Diabetes mellitus. 3. Ischemic cardiomyopathy status post implantable cardioverter defibrillator. 4. Cigarette smoking. RECOMMENDATIONS: In addition to his current medications I am going to add a very low dose of 2.5 mg of lisinopril daily. I believe that his creatinine is stable, at baseline and adding this medication may help his heart failure.
--- NOTE | 2017-01-22 11:48 | Progress Note ---
Medicine Progress Note Date & Time of Visit: Jan 22, 2017 at 11:30. Subjective Pt was seen and examined Lying in bed with no distress Pt said that his breathing seems a little better today. denies any chest pain, palpitation, and dizziness Objective Last 8 Hrs Date Time Temp Pulse Resp B/P Pulse Ox O2 Delivery O2 Flow Rate FiO2 01/22/17 10:56 63 94 01/22/17 07:20 36.5 65 18 117/66 100 Nasal Cannula 4.0 01/22/17 04:00 Nasal Cannula 4.0 Physical Exam: General- No acute distress Head- atraumatic Eyes- PERRL, EOMI ENT- oropharynx clear, decrease hearing function Neck- supple, no JVD Lungs-Poor air entry Heart- regular rhythm; no murmur Abdomen- normal bowel sounds, soft Extremities- no calf tenderness, +edema Neuro- alert, oriented x 3; PERRL, EOM Skin- warm & dry Laboratory Results: Last 24 Hours Test 01/22/17 09:00 Sodium Level 143 mmol/L Potassium Level 3.8 mmol/L Chloride Level 106 mmol/L Carbon Dioxide Level 26 mmol/L Anion Gap 11.0 mmol/L Blood Urea Nitrogen 46 mg/dl Creatinine 2.30 mg/dl Est Creatinine Clear Calc Drug Dose 29.9 ml/min Estimated GFR () 32.1 Estimated GFR (Non- 27.7 BUN/Creatinine Ratio 20.1 Random Glucose 160 mg/dl Calcium Level 8.5 mg/dl Assessment & Plan ACUTE ON CHRONIC CHF EXACERBATION -Presents with BNP >71039, peripheral edema. CXR with mild pulmonary congestion , Doppler US negative for DVT -interrogate pacemaker -Troponin trending down -ON IV lasix BID -continue BB, digoxin - Monitor I/O -cardiology on board, recommend to continue diuresis to dry wt -Creatine increase to 2.3 - Continue monitor to telemetry Echo done The left ventricle is severely dilated. * There is global thinning of the left ventricular cowan. * Left ventricular systolic function is severely reduced. * Ejection Fraction = <15%. * Spontaneous contrast is noted consistent with low flow state. * The right ventricular systolic function is moderately reduced. * The left atrial size is normal. * Right atrial size is normal. * There is mild to moderate mitral regurgitation. * There is mild tricuspid regurgitation. ELEVATED TROPONIN possible related to CKD -denies chest pain -EKG paced rhythm -CM trending down CKD STAGE 3 -Crea 2.2 baseline [facility] -Increase to 2.3 today -avoid nephrotoxic agents as able - Consider Nephrology consult if worsening ANEMIA OF CHRONIC DISEASE Stable continue monitor HTN -stable -continue Hydralazine, BB DIET CONTROLLED DM2 -update a1c -consistent carb diet TOBACCO ABUSE/COPD -Cessation counseling given -Nicotine patch ordered -continue home inhalers GERD -continue PPI BPH -continue Flomax DVT PROPHYLAXIS: Sq heparin CODE STATUS: FULL CODE Consultants: cardio Current Inpatient Medications: Current Inpatient Medications Medications (Trade) Dose Ordered Sig/Sonny Route Start Time Stop Time Status Last Admin Dose Admin Heparin Sodium (Porcine) (Heparin Sq 5000 Unit/0.5ml) 5,000 unit Q8 SQ 01/20/17 22:00 02/19/17 21:59 01/22/17 06:26 5,000 UNIT Acetaminophen (Tylenol Tab) 650 mg Q4H PRN PO 01/20/17 20:00 02/19/17 19:59 Ondansetron HCl (Zofran Inj) 4 mg Q6H PRN IV 01/20/17 20:00 02/19/17 19:59 Nitroglycerin (Nitrostat Tab) 0.4 mg UD PRN SL 01/20/17 20:00 02/19/17 19:59 Ascorbic Acid (Vitamin C Tab) 500 mg BID PO 01/20/17 21:00 02/19/17 20:59 01/22/17 07:28 500 MG Aspirin (Ecotrin Tab) 325 mg DAILY PO 01/21/17 09:00 02/20/17 08:59 01/22/17 07:26 325 MG Carvedilol (Coreg Tab) 3.125 mg BID PO 01/20/17 21:00 02/19/17 20:59 01/22/17 07:27 3.125 MG Cholecalciferol (Vitamin D Tab) 1,000 inter.unit DAILY PO 01/21/17 09:00 02/20/17 08:59 01/22/17 07:27 1,000 INTER.UNIT Digoxin (Lanoxin Tab) 0.125 mg MoWeFr@1600 PO 01/23/17 16:00 02/22/17 15:59 Hydralazine HCl (Apresoline Tab) 25 mg TID PO 01/20/17 21:00 02/19/17 20:59 01/22/17 07:28 25 MG Simvastatin (Zocor Tab) 20 mg QPM PO 01/20/17 21:00 02/19/17 20:59 01/21/17 20:51 20 MG Tamsulosin HCl (Flomax Cap) 0.4 mg HS PO 01/20/17 21:00 02/19/17 20:59 01/21/17 20:51 0.4 MG Tiotropium [place] (Spiriva Handihaler Inhaler) 1 puff DAILY INH 01/21/17 09:00 02/20/17 08:59 01/22/17 07:27 1 PUFF Ferrous Sulfate (Feosol Tab) 325 mg BID PO 01/20/17 21:00 02/19/17 20:59 01/22/17 07:26 325 MG Pantoprazole Sodium 40 mg 40 mg DAILY PO 01/21/17 09:00 02/20/17 08:59 01/22/17 07:27 40 MG Furosemide/Syringe (Lasix Inj/ Syringe) 4 ml @ 4 mls/min BID17 IV 01/21/17 09:00 02/20/17 08:59 01/22/17 07:42 4 MLS/MIN Nicotine (Nicoderm Cq 14MG Patch) 1 patch QAM TD 01/21/17 09:00 02/20/17 08:59 01/22/17 07:31 1 PATCH Miscellaneous (Remove Nicoderm Patch) 1 ea HS N/A 01/20/17 21:00 02/19/17 20:59 Albuterol/ Ipratropium (Duoneb) 3 ml Q4R PRN INH 01/21/17 04:15 02/20/17 04:14 Lisinopril (Zestril Tab) 2.5 mg QAM PO 01/23/17 09:00 02/22/17 08:59
[2017-01-22] MEDS: SIMVASTATIN 20 MG TAB PO SCH (21:41)
[2017-01-22] MEDS: TAMSULOSIN HCL 0.4 MG CAP PO SCH (21:41)
[2017-01-23] VITALS (10 sets, daily range): BP systolic 91–119; BP diastolic 47–72; PULSE 60–65; TEMP 36.4–36.7; O2SAT 92–99
[2017-01-23] MEDS: HEPARIN SOD 5000 UNIT/0.5 ML CARP SQ SCH ×3 (05:51→21:27)
[2017-01-23 07:38] LABS: HEMATOCRIT 28.9 % (42-52); MEAN CELL VOLUME 108.2 fL (80-100); MEAN CORPUSCULAR HEMOGLOBIN 35.2 pg (25-34); MEAN CORPUSCULAR HGB CONC 32.5 g/dl (32-36); MEAN PLATELET VOLUME 11.9 fL (7.4-10.4); PLATELET COUNT 128 K/uL (130-400); RED BLOOD COUNT 2.67 M/uL (4.7-6.1); WHITE BLOOD COUNT 4.87 K/uL (4.8-10.8)
--- NOTE | 2017-01-23 08:11 | Clinical Documentation Query ---
CLINICAL DOCUMENTATION QUERY Dr. FULTON, For consistency of documentation, please document the type of CHF that pt has. Cardiology has documented acute on chronic systolic CHF. In your clinical opinion is this patient being managed for: ( x ) Acute on chronic systolic CHF ( ) Other explanation of clinical findings (Please Explain) ( ) Unable to determine (Please Define) ( ) Need to Discuss ( ) Not Agree The medical record reflects the following clinical findings, treatment, and risk factors. Clinical Indicators: 71 yo male presenting with acute on chronic CHF (unspecified). ECHO showed EF of <15%. Treatment: tele, cardiology consult, IV lasix, Daily wts, I/O, AHA/low sodium diet, fluid restriction, ECHO, zestril, coreg, apresoline, O2 Support Risk Factors: age, tobacco abuse, CAD, HTN, [place], COPD, CKD Please clarify and document your clinical opinion in the progress notes and discharge summary. Terms such as "probable", "suspected", "likely", "questionable", "possible", or "still to be ruled out" are acceptable. IF IN AGREEMENT, YOU MUST DOCUMENT ABOVE DIAGNOSTIC STATEMENT IN DAILY PROGRESS NOTES AND DISCHARGE SUMMARY. This document is not part of the patient's record. Thank You, Vashti Crandall, INDER [phone]
[2017-01-23] MEDS: TIOTROPIUM BROMIDE 5 PUFF/90 MCG INH INH SCH (08:30)
[2017-01-23] MEDS: ASPIRIN 325 MG ECTAB PO SCH (08:31)
[2017-01-23] MEDS: ASCORBIC ACID 500 MG TAB PO SCH ×2 (08:31→21:25)
[2017-01-23] MEDS: FUROSEMIDE INJ 40 MG in SYRINGE 0 ML IV SCH (08:31)
[2017-01-23] MEDS: PANTOprazole SOD 40 MG TAB PO SCH (08:32)
[2017-01-23] MEDS: LISINOPRIL 2.5 MG TAB PO SCH (08:32)
[2017-01-23] MEDS: FERROUS SULFATE 325 MG TAB PO SCH ×2 (08:32→21:25)
[2017-01-23] MEDS: CARVEDILOL 3.125 MG TAB PO SCH ×2 (08:33→21:25)
[2017-01-23] MEDS: NICOTINE 14 MG/24 HR TDSY TD SCH (08:33)
[2017-01-23] MEDS: CHOLECALCIFEROL 1000 INTER.UNIT TAB PO SCH (08:33)
[2017-01-23 08:43] LABS: BUN/CREATININE RATIO 20.9 (10-20); CALCIUM 8.6 mg/dl (8.5-10.1); CREATININE 2.6 mg/dl (0.60-1.40); POTASSIUM 3.9 mmol/L (3.5-5.1)
--- NOTE | 2017-01-23 11:24 | Cardiology Follow-Up ---
Subjective General Date of Service: January 23, 2017. Chief Complaint: Dyspnea Pt evaluation today including: conversation w/ patient, physical exam, chart review, lab review, review of studies, review of inpatient medication list History of Present Illness Patient seen and examined. Dyspnea unchanged from yesterday, essentially back to baseline per his description today. Peripheral edema has improved to baseline , pedal edema. I/O's negative 6,005 mL's overall Weight down ~9 pounds since admission Telemetry: Sinus, paced, with ventricular ectopy in singles as well as couplets. Device interrogation on 01/20/[address] [employer]vin biventricular pacemaker defibrillator that was implanted on 04/14/2015. Estimated remaining longevity was 4.4 years. BiV paced 99% of the time. January 21, 2017 TTE Interpretation Summary ([facility], Dr. Bowden): The left ventricle is severely dilated. There is global thinning of the left ventricular cowan. Left ventricular systolic function is severely reduced. Ejection Fraction = <15% . Spontaneous contrast is noted consistent with low flow state. The right ventricular systolic function is moderately reduced. The left atrial size is normal. Right atrial size is normal. There is mild to moderate mitral regurgitation. There is mild tricuspid regurgitation. Allergies Coded Allergies: No Known Allergies (Unverified , 01/20/17) Social History Smoking Status: Current Every Day Smoker Hx Tobacco Use In Past Year?: Yes Hx Alcohol Use - Type And Amou: Yes (ONCE EVERY 10 DAYS 6 PACK) Hx Substance Use - Type And Am: No Problem List Medical Problems: (1) CHF (congestive heart failure) Status: Acute (2) Elevated troponin Status: Acute (3) Lower extremity edema Status: Acute Physical Exam Vital Signs Last Vital Signs Documentation Date Time Temp Pulse Resp B/P Pulse Ox O2 Delivery O2 Flow Rate FiO2 01/23/17 11:05 36.6 65 18 105/64 99 4.0 01/23/17 07:25 Room Air Physical Exam Constitutional: Level of Distress: NAD Psychiatric: Mental Status: active & alert Orientation: to time, to place, to person Memory: recent memory normal, remote memory normal Head: normocephalic, atraumatic Neck: pertinent finding (Normal JVP. + HJR. ) Lungs: Respiratory effort: dyspneic Auscultation: no wheezing, deminished air movement, decreased breath sounds , rales/crackles on the left, rales/crackles on the right Cardiovascular: Heart Auscultation: RRR, no rubs, II/ KARTHIKEYAN Peripheral Pulses: Radial Pulse: normal on the left, normal on the right Dorsalis Pedis Pulse: decreased on the left, decreased on the right Abdomen: Bowel Sounds: normal Inspection & Palpation: soft, no masses Liver: non-tender Extremities: no cyanosis, no clubbing, edema (1+ pedal edema) Neurologic: Cranial Nerves: grossly intact Assessment and Plan Assessment and Plan Admission with acute on chronic systolic conestive heart failure Severe ischemic cardiomyopathy with EF less than 15% Status post [employer] Selvin biventricular pacemaker defibrillator as detailed above. chronic tobacco abuse, underlying COPD Type II diabetes mellitus Chronic kidney disease. Discontinue IV furosemide Start oral furosemide, 60 mg/day. Given observed borderline hypotension and underlying COPD would switch Coreg to Toprol XL Continue low dose GOLDIE inhibition and digoxin Tobacco cessation ? initiate Coumadin anticoagulation given low flow state, spontaneous contrast CARDIOLOGY ATTENDING ADDENDUM: The patient was seen and personally examined. Agree with Michael Medellin PA-C's findings and plans as documented above. Saw spontaneous contrast in LV cavity on echo and agree if patient can be compliant, then chcf A/C with Coumadin would be appropriate. I am however concerned about follow-up, Laboratory Results Last 24 Hours Test 01/23/17 06:56 White Blood Count 4.87 K/uL Red Blood Count 2.67 M/uL Hemoglobin 9.4 g/dL Hematocrit 28.9 % Mean Corpuscular Volume 108.2 fL Mean Corpuscular Hemoglobin 35.2 pg Mean Corpuscular Hemoglobin Concent 32.5 g/dl RDW Standard Deviation 68.9 fL RDW Coefficient of Variation 17.6 % Platelet Count 128 K/uL Mean Platelet Volume 11.9 fL Sodium Level 143 mmol/L Potassium Level 3.9 mmol/L Chloride Level 106 mmol/L Carbon Dioxide Level 25 mmol/L Anion Gap 12.0 mmol/L Blood Urea Nitrogen 54 mg/dl Creatinine 2.60 mg/dl Est Creatinine Clear Calc Drug Dose 26.4 ml/min Estimated GFR () 27.7 Estimated GFR (Non- 23.9 BUN/Creatinine Ratio 20.9 Random Glucose 118 mg/dl Calcium Level 8.6 mg/dl
--- NOTE | 2017-01-23 15:26 | Progress Note ---
Medicine Progress Note Date & Time of Visit: January 23, 2017 at 15:09. Subjective Pt was seen and examined Lying in bed with no distress He has been moving around with no discomfort He said that his breathing seems to improved He denies any chest pain, palpitation and dizziness Objective Last 8 Hrs Date Time Temp Pulse Resp B/P Pulse Ox O2 Delivery O2 Flow Rate FiO2 01/23/17 11:05 36.6 65 18 105/64 99 4.0 01/23/17 07:25 36.6 60 20 105/62 92 Room Air Physical Exam: General- No acute distress Head- atraumatic Eyes- PERRL, EOMI ENT- oropharynx clear, decrease hearing function Neck- supple, no JVD Lungs-Poor air entry Heart- regular rhythm; no murmur Abdomen- normal bowel sounds, soft Extremities- no calf tenderness, +edema Neuro- alert, oriented x 3; PERRL, EOM Skin- warm & dry Laboratory Results: Last 24 Hours Test 01/23/17 06:56 White Blood Count 4.87 K/uL Red Blood Count 2.67 M/uL Hemoglobin 9.4 g/dL Hematocrit 28.9 % Mean Corpuscular Volume 108.2 fL Mean Corpuscular Hemoglobin 35.2 pg Mean Corpuscular Hemoglobin Concent 32.5 g/dl RDW Standard Deviation 68.9 fL RDW Coefficient of Variation 17.6 % Platelet Count 128 K/uL Mean Platelet Volume 11.9 fL Sodium Level 143 mmol/L Potassium Level 3.9 mmol/L Chloride Level 106 mmol/L Carbon Dioxide Level 25 mmol/L Anion Gap 12.0 mmol/L Blood Urea Nitrogen 54 mg/dl Creatinine 2.60 mg/dl Est Creatinine Clear Calc Drug Dose 26.4 ml/min Estimated GFR () 27.7 Estimated GFR (Non- 23.9 BUN/Creatinine Ratio 20.9 Random Glucose 118 mg/dl Calcium Level 8.6 mg/dl Assessment & Plan ACUTE ON CHRONIC CHF EXACERBATION -Presents with BNP >53152, peripheral edema. 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 -Continue monitor in telemetry Echo done on 01/21 The left ventricle is severely dilated. * There is global thinning of the left ventricular cowan. * Left ventricular systolic function is severely reduced. * Ejection Fraction = <15%. * Spontaneous contrast is noted consistent with low flow state. * The right ventricular systolic function is moderately reduced. * The left atrial size is normal. * Right atrial size is normal. * There is mild to moderate mitral regurgitation. * There is mild tricuspid regurgitation. ELEVATED TROPONIN possible related to CKD -denies chest pain -EKG paced rhythm -CM trending down CKD STAGE 3 -Crea 2.2 [facility] -Creatine increase to 2.6 today - Possible related to diuresis -Lasix IV 40 BID changed to PO lasix 60mg daily -avoid nephrotoxic agents as able -Consider Nephrology consult if creatine worsening ANEMIA OF CHRONIC DISEASE Stable continue monitor HTN -stable -continue Hydralazine, BB DIET CONTROLLED DM2 -update a1c -consistent carb diet TOBACCO ABUSE/COPD -Cessation counseling given -Nicotine patch ordered -continue home inhalers GERD -continue PPI BPH -continue Flomax DVT PROPHYLAXIS: Sq heparin CODE STATUS: FULL CODE Consultants: cardio Current Inpatient Medications: Current Inpatient Medications Medications (Trade) Dose Ordered Sig/Sonny Route Start Time Stop Time Status Last Admin Dose Admin Heparin Sodium (Porcine) (Heparin Sq 5000 Unit/0.5ml) 5,000 unit Q8 SQ 01/20/17 22:00 02/19/17 21:59 01/23/17 14:14 5,000 UNIT Acetaminophen (Tylenol Tab) 650 mg Q4H PRN PO 01/20/17 20:00 02/19/17 19:59 Ondansetron HCl (Zofran Inj) 4 mg Q6H PRN IV 01/20/17 20:00 02/19/17 19:59 Nitroglycerin (Nitrostat Tab) 0.4 mg UD PRN SL 01/20/17 20:00 02/19/17 19:59 Ascorbic Acid (Vitamin C Tab) 500 mg BID PO 01/20/17 21:00 02/19/17 20:59 5/1/17 08:31 500 MG Aspirin (Ecotrin Tab) 325 mg DAILY PO 01/21/17 09:00 02/20/17 08:59 01/23/17 08:31 325 MG Carvedilol (Coreg Tab) 3.125 mg BID PO 01/20/17 21:00 01/23/17 23:00 01/23/17 08:33 3.125 MG Cholecalciferol (Vitamin D Tab) 1,000 inter.unit DAILY PO 01/21/17 09:00 02/20/17 08:59 01/23/17 08:33 1,000 INTER.UNIT Digoxin (Lanoxin Tab) 0.125 mg MoWeFr@1600 PO 01/23/17 16:00 02/22/17 15:59 Hydralazine HCl (Apresoline Tab) 25 mg TID PO 01/20/17 21:00 02/19/17 20:59 01/23/17 14:13 25 MG Simvastatin (Zocor Tab) 20 mg QPM PO 01/20/17 21:00 02/19/17 20:59 01/22/17 21:41 20 MG Tamsulosin HCl (Flomax Cap) 0.4 mg HS PO 01/20/17 21:00 02/19/17 20:59 01/22/17 21:41 0.4 MG Tiotropium Sheldon (Spiriva Handihaler Inhaler) 1 puff DAILY INH 01/21/17 09:00 02/20/17 08:59 01/23/17 08:30 1 PUFF Ferrous Sulfate (Feosol Tab) 325 mg BID PO 01/20/17 21:00 02/19/17 20:59 01/23/17 08:32 325 MG Pantoprazole Sodium (Protonix Tab) 40 mg DAILY PO 01/21/17 09:00 02/20/17 08:59 01/23/17 08:32 40 MG Nicotine (Nicoderm Cq 14MG Patch) 1 patch QAM TD 01/21/17 09:00 02/20/17 08:59 01/23/17 08:33 1 PATCH Miscellaneous (Remove Nicoderm Patch) 1 ea HS N/A 01/20/17 21:00 02/19/17 20:59 Albuterol/ Ipratropium (Duoneb) 3 ml Q4R PRN INH 01/21/17 04:15 02/20/17 04:14 Lisinopril (Zestril Tab) 2.5 mg QAM PO 01/23/17 09:00 02/22/17 08:59 01/23/17 08:32 2.5 MG Furosemide (Lasix Tab) 60 mg QAM PO 01/24/17 09:00 02/23/17 08:59 Metoprolol Succinate (Toprol Xl Tab) 37.5 mg QAM PO 01/24/17 09:00 02/23/17 08:59
[2017-01-23] MEDS ORDERED: DIGOXIN 0.125 MG TAB PO SCH (16:00)
[2017-01-23] MEDS ORDERED: GLUCOSE 10 TABS/TUBE PO PRN (21:00)
[2017-01-23] MEDS ORDERED: GLUCAGON FOR INJ 1 MG VIAL SQ PRN (21:00)
[2017-01-23] MEDS ORDERED: GLUCOSE 40% GEL 15 GM TUBE PO PRN (21:00)
[2017-01-23] MEDS ORDERED: DEXTROSE 50% 50 ML SYR IV PRN (21:00)
[2017-01-23] MEDS ORDERED: PHARMACY GLYCEMIC MGMT CONSULT PRN (21:23)
[2017-01-23] MEDS: TAMSULOSIN HCL 0.4 MG CAP PO SCH (21:25)
[2017-01-23] MEDS: SIMVASTATIN 20 MG TAB PO SCH (21:25)
[2017-01-23] MEDS: INSULIN ASPART 100 UNITS/ML 3 ML PEN SC SCH (22:22)
[2017-01-24 03:09] VITALS: BP 110/65; PULSE 59; TEMP 36.5; O2SAT 92
[2017-01-24] MEDS: HEPARIN SOD 5000 UNIT/0.5 ML CARP SQ SCH ×2 (06:06→13:56)
[2017-01-24 07:04] LABS: BUN/CREATININE RATIO 22.4 (10-20); CALCIUM 8.6 mg/dl (8.5-10.1); CREATININE 2.5 mg/dl (0.60-1.40); POTASSIUM 3.8 mmol/L (3.5-5.1)
[2017-01-24 07:27] VITALS: BP 111/68; PULSE 60; TEMP 36.5; O2SAT 100
[2017-01-24] MEDS: INSULIN ASPART 100 UNITS/ML 3 ML PEN SC SCH ×2 (07:28→11:59)
[2017-01-24] MEDS: LISINOPRIL 2.5 MG TAB PO SCH (07:29)
[2017-01-24] MEDS: PANTOprazole SOD 40 MG TAB PO SCH (07:30)
[2017-01-24] MEDS: CHOLECALCIFEROL 1000 INTER.UNIT TAB PO SCH (07:30)
[2017-01-24] MEDS: FERROUS SULFATE 325 MG TAB PO SCH (07:31)
[2017-01-24] MEDS: ASCORBIC ACID 500 MG TAB PO SCH (07:31)
[2017-01-24] MEDS: TIOTROPIUM BROMIDE 5 PUFF/90 MCG INH INH SCH (07:31)
[2017-01-24] MEDS: ASPIRIN 325 MG ECTAB PO SCH (07:32)
[2017-01-24] MEDS: NICOTINE 14 MG/24 HR TDSY TD SCH (07:33)
[2017-01-24 08:00] VITALS: O2SAT 99
[2017-01-24] MEDS ORDERED: FUROSEMIDE 20 MG TAB PO SCH (09:00)
[2017-01-24] MEDS ORDERED: METOPROLOL SUCC 25MG EXT REL TAB PO SCH (09:00)
--- NOTE | 2017-01-24 09:56 | Cardiology Follow-Up ---
Subjective General Date of Service: January 24, 2017. Chief Complaint: Dyspnea Pt evaluation today including: conversation w/ patient, physical exam, chart review, lab review, review of studies, review of inpatient medication list History of Present Illness Patient seen and examined. Notes improved dyspnea, back to baseline. Further improvement in pedal edema. No chest pain. No palpitations. Stable orthopnea, without PND. I/O's negative 7,980 mL's overall Weight down ~9 pounds since admission Telemetry: Sinus, paced, ventricular ectopy in singles. Device interrogation on 01/20/[address] Selvin biventricular pacemaker defibrillator that was implanted on 04/14/2015. Estimated remaining longevity was 4.4 years. BiV paced 99% of the time. January 21, 2017 TTE Interpretation Summary ([facility], Dr. Bowden): The left ventricle is severely dilated. There is global thinning of the left ventricular cowan. Left ventricular systolic function is severely reduced. Ejection Fraction = <15% . Spontaneous contrast is noted consistent with low flow state. The right ventricular systolic function is moderately reduced. The left atrial size is normal. Right atrial size is normal. There is mild to moderate mitral regurgitation. There is mild tricuspid regurgitation. Allergies Coded Allergies: No Known Allergies (Unverified , 01/20/17) Social History Smoking Status: Current Every Day Smoker Hx Tobacco Use In Past Year?: Yes Hx Alcohol Use - Type And Amou: Yes (ONCE EVERY 10 DAYS 6 PACK) Hx Substance Use - Type And Am: No Problem List Medical Problems: (1) CHF (congestive heart failure) Status: Acute (2) Elevated troponin Status: Acute (3) Lower extremity edema Status: Acute Review of Systems Respiratory: No cough, No hemoptysis, No shortness of breath, No sputum, No wheezing Cardiac: No chest pain, No edema, No orthopnea, No palpitations Physical Exam Vital Signs Last Vital Signs Documentation Date Time Temp Pulse Resp B/P Pulse Ox O2 Delivery O2 Flow Rate FiO2 01/24/17 08:00 99 Nasal Cannula 4.0 01/24/17 07:27 36.5 60 18 111/68 Physical Exam Constitutional: Level of Distress: NAD Psychiatric: Mental Status: active & alert Orientation: to time, to place, to person Memory: recent memory normal, remote memory normal Head: normocephalic, atraumatic Neck: pertinent finding (Normal JVP. + HJR. ) Lungs: Respiratory effort: dyspneic Auscultation: no wheezing, deminished air movement, decreased breath sounds , rales/crackles on the left, rales/crackles on the right Cardiovascular: Heart Auscultation: RRR, no rubs, II/ KARTHIKEYAN Peripheral Pulses: Radial Pulse: normal on the left, normal on the right Dorsalis Pedis Pulse: decreased on the left, decreased on the right Abdomen: Bowel Sounds: normal Inspection & Palpation: soft, no masses Liver: non-tender Extremities: no cyanosis, no clubbing, edema (Mild (less than 1+)) Neurologic: Cranial Nerves: grossly intact Assessment and Plan Assessment and Plan Admission with acute decompensated systolic congestive heart failure History of severe ischemic cardiomyopathy, EF less than 15%, status post [employer] Selvin biventricular pacemaker defibrillator COPD, ongoing tobacco abuse Type II diabetes mellitus Stage III-IV chronic kidney disease. Anemia. Chronic disease and iron deficiency. Coreg switched to Toprol XL Lisinopril added. He will require very close follow-up of his renal dysfunction and particularly potassium status (concern for future hyperkalemia noted) Recommend titration of Furosemide to 60 mg/day on discharge. Coumadin anticoagulation discussed including the risks and benefits; declined by the patient. Tobacco cessation advised Recommend close outpatient cardiology follow-up. Cardiology attending physician: Patient seen and examined at the bedside. States he does not want to take lisinopril as an outpatient. His concern regarding potential side effects. Denies chest pain or shortness of breath. No lower extremity edema or palpitations. No dysrhythmias on telemetry. PE: VSS, GEN: NAD, AAOx3. Heart: Regular, normal S1-S2, no murmur. Lungs: Clear bilateral, no rales, rhonchi, or wheeze. Abdomen: Soft, nontender, nondistended. Normal bowel sounds. Extremities: No edema. A/P: Agree with above PA-C history, physical exam, assessment and plan with the following additions. Risk versus benefit of lisinopril discussed at length. Patient requesting discontinuation. Ideally patient should be treated with long -acting nitrates in addition to hydralazine, however, he is anxious for discharge. I am reluctant to add further medications at this time as the patient is declining follow-up. I had a long discussion with him regarding outpatient cardiology follow-up. I offered appointments at both the [facility], and [facility] locations. He declines and prefers to follow-up with his physician at the [place]. All questions were answered to his satisfaction. He will call the [facility] clinic if he changes his mind in the future. Will sign off. Please call with questions. Ej Angelo DO, [facility] Laboratory Results Last 24 Hours Test 01/23/17 15:57 01/23/17 20:08 01/24/17 06:22 Bedside Glucose 169 mg/dl 171 mg/dl 124 mg/dl Sodium Level 143 mmol/L Potassium Level 3.8 mmol/L Chloride Level 107 mmol/L Carbon Dioxide Level 27 mmol/L Anion Gap 9.0 mmol/L Blood Urea Nitrogen 56 mg/dl Creatinine 2.50 mg/dl Est Creatinine Clear Calc Drug Dose 27.5 ml/min Estimated GFR () 29.1 Estimated GFR (Non- 25.1 BUN/Creatinine Ratio 22.4 Random Glucose 110 mg/dl Calcium Level 8.6 mg/dl
--- NOTE | 2017-01-24 11:05 | Progress Note ---
Internal Med Progress Note Date of Service: January 24, 2017. Provider Documentation: SUBJECTIVE: The patient was sen and examined Feels a lot better since admission Denies any chest pain,palpitation,SOB No abdominal; pain,nausea and or vomiting OBJECTIVE: Vital Signs-as noted below Exam: General-No distress at rest Eyes-normal ENT-normal Neck-Supple Lungs-Decreased breath sound bilaterally Heart-Regular,no murmur appreciated Abdomen-Benign,no masses,bowel sound present Extremities-Trace edema bilaterally Neuro-AAOx3 Lab data as noted below. ASSESSMENT & PLAN: Acute decompensated systolic congestive heart failure -Presents with BNP >77584, peripheral edema. CXR with mild pulmonary congestion , Doppler US negative for DVT -Received IV Lasix changed to Po Lasix 60mg daily -Coreg changed to Toprol XL -Diuresed a lot -No arrhythmia in Tele Echo done on 01/21 The left ventricle is severely dilated. * There is global thinning of the left ventricular cowan. * Left ventricular systolic function is severely reduced. * Ejection Fraction = <15%. * Spontaneous contrast is noted consistent with low flow state. * The right ventricular systolic function is moderately reduced. * The left atrial size is normal. * Right atrial size is normal. * There is mild to moderate mitral regurgitation. * There is mild tricuspid regurgitation. Appreciate Cardiology input and recommendation Discussed the pros and cons of Anticoagulation with the patient-He declined to have Coumadin Clinically a lot better Will be discharged today ELEVATED TROPONIN possible related to CKD -denies chest pain -EKG paced rhythm -No ACS --clinically stable CKD STAGE 3 -Crea 2.2 [facility] -Creatine increase to 2.6 on 01/23/17 -Lasix IV 40 BID changed to PO lasix 60mg daily -avoid nephrotoxic agents as able -Kidney function is improving and Creatinine is is a little better today at 2.5 ANEMIA OF CHRONIC DISEASE Stable continue monitor-Hb >9.0 HTN -stable -continue Hydralazine, BB DIET CONTROLLED DM2 -update a1c-6.0 -consistent carb diet -diabetes is well controlled TOBACCO ABUSE with H/O COPD -Cessation counseling given -Nicotine patch ordered -continue home inhalers GERD -continue PPI BPH -continue Flomax DVT PROPHYLAXIS: Sq heparin CODE STATUS: FULL CODE Consultants: cardio DISPOSITION Discharge today Follow up appointment is made Vital Signs: Date Time Temp Pulse Resp B/P Pulse Ox O2 Delivery O2 Flow Rate FiO2 5/2/17 08:00 99 Nasal Cannula 4.0 01/24/17 07:27 36.5 60 18 111/68 100 4.0 01/24/17 04:00 Nasal Cannula 4.0 01/24/17 03:09 36.5 59 20 110/65 92 Room Air 01/23/17 23:59 Nasal Cannula 4.0 01/23/17 23:17 36.5 63 18 102/63 99 Nasal Cannula 4.0 01/23/17 20:00 99 Nasal Cannula 4.0 01/23/17 19:04 36.7 63 18 119/72 99 Nasal Cannula 4.0 01/23/17 17:53 64 01/23/17 16:00 92 Nasal Cannula 4.0 01/23/17 15:29 36.4 63 18 91/51 92 Room Air 01/23/17 12:00 94 Nasal Cannula 4.0 01/23/17 11:05 36.6 65 18 105/64 99 4.0 Lab Results: Results Past 24 Hours Test 01/23/17 15:57 01/23/17 20:08 01/24/17 06:22 Range/Units Bedside Glucose 169 171 124 70-99 mg/dl Sodium Level 143 136-145 mmol/L Potassium Level 3.8 3.5-5.1 mmol/L Chloride Level 107 98-107 mmol/L Carbon Dioxide Level 27 21-32 mmol/L Anion Gap 9.0 3-11 mmol/L Blood Urea Nitrogen 56 7-18 mg/dl Creatinine 2.50 0.60-1.40 mg/dl Est Creatinine Clear Calc Drug Dose 27.5 ml/min Estimated GFR () 29.1 Estimated GFR (Non- 25.1 BUN/Creatinine Ratio 22.4 10-20 Random Glucose 110 70-99 mg/dl Calcium Level 8.6 8.5-10.1 mg/dl
[2017-01-24 11:08] VITALS: BP 106/65; PULSE 61; TEMP 36.4; O2SAT 93
[2017-01-24 12:00] VITALS: O2SAT 99
--- NOTE | 2017-01-24 12:25 | Pharmacy Progress Note ---
Glycemic Control Intl Consult Date of Service January 24, 2017. Scope Glycemic Pharmacist consulted by Dr Deluca on 01/23/2017 for glycemic control and to write orders per [facility] inpatient glycemic control protocol Objective Weight (Kilograms): 76.900 Accuchecks BSG (last 24hrs): Test 01/23/17 15:57 01/23/17 20:08 01/24/17 06:22 Bedside Glucose 169 mg/dl (70-99) 171 mg/dl (70-99) 124 mg/dl (70-99) Random Glucose 110 mg/dl (70-99) Laboratory Data (last 24hrs) Test 01/24/17 06:22 Anion Gap 9.0 mmol/L BUN/Creatinine Ratio 22.4 Blood Urea Nitrogen 56 mg/dl Creatinine 2.50 mg/dl Potassium Level 3.8 mmol/L Sodium Level 143 mmol/L HbA1c Test 01/21/17 06:23 Hemoglobin A1c 6.0 % (4.5-5.6) H Recent Pertinent Medications Outpatient Anti-diabetic Regimen: * diet controlled The patient is currently receiving: * Correctional Insulin: Novolog Correction per scale ACHS Goal Range: Low 120 mg/dL - High 160 mg/dL Correction Factor: 55 mg/dL/unit * Prandial insulin: Per carb ratio of 1 unit per 19 grams CHO consumed Risk Factors for Insulin Resistance: * Diet: type 2 diabetic diet Assessment & Plan ASSESSMENT: * ADA & AACE recommend a goal blood sugar range 140-180 mg/dl for the majority of critically ill & non-critically ill patients. However, more stringent targets may be selected in individual cases. Will utilize more stringent goal of 110-140 mg/dl based on patient age & comorbidities. Patient's A1C is well controlled at 6.0% with few co-morbidities. * Mr Pimentel was admitted 01/20/2017 with a CHF exacerbation. His blood sugar appeared reasonably well controlled with all readings below 180 mg/dL. The patient was started on a weight-based stress of 1 correctional insulin 2016. He received 1 unit last night. * Currently, the patient's blood sugars range between 124 mg/dL - 151 mg/dL. He has received 4 units today. I believe that the patient will benefit more from a tighter correctional insulin to keep his blood sugars within range. Also, to optimize glycemic control, blood sugar goal range was reduced. PLAN FOR INPATIENT GLYCEMIC CONTROL: * TIGHTENING correction factor to 40 mg/dl/unit * TIGHTENING carb ratio to 1 unit per 15 grams CHO consumed * Changing goal range to Low 110 mg/dL - High 140 mg/dL * Please note that the plan above was derived based on current level of insulin resistance and hospital stress. These recommendations are appropriate for inpatient admission only. Plan of care upon discharge will need to be reassessed to avoid potential outpatient hypo/hyperglycemia. Thank you.
[2017-01-24] MEDS ORDERED: TPRSR25 PO (15:54)
[2017-01-24] MEDS ORDERED: NCDT14 TD (15:54)
--- NOTE | 2017-01-24 15:58 | Discharge Instructions ---
Discharge Instructions Date of Service January 24, 2017. Admission Reason for Admission: Chf, Elevated Troponin Discharge Discharge Diagnosis / Problem: Acute Decompensated Systolic Congestive Herat Failure Discharge Goals Goal(s): Prevent Disease Progression Activity Recommendations Activity Limitations: resume your previous activity . Instructions / Follow-Up Instructions / Follow-Up [facility] Parikh at [facility] on MondayJanuary 27 at 1:30PM.Will need close Cardiology follow up as well Current Hospital Diet Patient's current hospital diet: AHA Diet (Heart Healthy), Low Sodium Diet (2gm Na), Diabetes Type 2 Diet Discharge Diet Recommended Diet: Low Sodium Diet (2gm Na), Diabetes Type 2 Diet Fluid Restriction: 1500 ml (6 cups) Pending Studies Studies pending at discharge: no Laboratory Results Hemoglobin A1c Test 01/21/17 06:23 Range/Units Estimated Average Glucose 126 mg/dl Hemoglobin A1c 6.0 H 4.5-5.6 % Lipid Panel Test 01/21/17 06:23 Range/Units Triglycerides Level 35 0-150 mg/dl Cholesterol Level 62 0-200 mg/dl HDL Cholesterol 27 mg/dl Cholesterol/HDL Ratio 2.3 LDL Cholesterol, Calculated 28 mg/dl Medical Emergencies . Who to Call and When: Medical Emergencies: If at any time you feel your situation is an emergency, please call 911 immediately. . Non-Emergent Contact Non-Emergency issues call your: Primary Care Provider . . "Provider Documentation" section prepared by Kwadwo Guadarrama. . VTE Core Measure Inpt VTE Proph given/why not?: Unfractionated heparin SQ
[2017-01-24 16:40] VITALS: BP 106/65; PULSE 61; TEMP 36.4; O2SAT 99
--- NOTE | 2017-01-24 17:53 | Discharge Summary ---
Discharge Summary Date of Service January 24, 2017. Discharge Summary Admission Date: Jan 20, 2017 at 19:31 Discharge Date: January 24, 2017 Discharge Disposition: Home Principal Diagnosis: Acute decompensated systolic congestive heart failure.EF <15% Secondary Diagnoses/Problems: Please see H&P and Hospital Progress note Consultations: cardio Medication Reconciliation New Medications: Metoprolol Succinate (Metoprolol Succinate ER) 25 Mg Tabcr 37.5 MG PO QAM for 30 Days, #45 Nicotine (Nicotine) 1 Patch Tdsy 1 PATCH TD QAM for 30 Days, #30 Continued Medications: Ascorbic Acid (Vitamin C) 500 Mg Tab 500 MG PO BID Aspirin (Ecotrin) 325 Mg Tab 325 MG PO DAILY Cholecalciferol (Vitamin D3) 1,000 Unit Tab 1000 INTER.UNIT PO DAILY, TAB 3 Refills Digoxin (Digoxin) 0.125 Mg Tab 0.125 MG PO MWF Ferrous Sulfate (Iron) 325 Mg Tab 325 MG PO BID Furosemide (Lasix) 40 Mg Tab 60 MG PO DAILY, TAB Hydralazine HCl (Hydralazine HCl) 25 Mg Tab 25 MG PO TID Omeprazole (Prilosec) 20 Mg Capcr 20 MG PO DAILY, CAP Simvastatin (Zocor) 20 Mg Tab 20 MG PO QPM, TAB Tamsulosin HCl (Tamsulosin HCl) 0.4 Mg Cap 0.4 MG PO HS Tiotropium Ruth (Spiriva Handihaler) 30 Puff/540 Mcg Aerp 1 CAP INH DAILY, INHALER Discontinued Medications: Carvedilol (Coreg) 6.25 Mg Tab 3.125 MG PO BID, TAB Admission Information HPI (per Admitting provider): Patient seen and examined. 71 year old male with PMHx of CAD, CHF s/p ICD, diet controlled DM2, HTN, HLD, COPD, tobacco abuse presents to the ED complaining of leg swelling x 3 days. [facility] noticed his BLLE edema and referred him to the ED for further workup. Patient reports in the last several weeks he has started to notice a little increased swelling however in the last three days he reports it has gotten much worse. His shoes do not fit and he has been wearing sandals. He states he has been doubling his lasix and he continues to have the edema. He reports chronic SOB that he attributes to his COPD and continued smoking. He denies fevers, chills, URI symptoms, chest pain, nausea, vomiting, diarrhea, dysuria, calf pain. He reports he just recently learned that isidroen noodles have salt in them, before that he was eating them on about a daily basis. He does not watch his fluid intake. He does not weigh himself often but believes he has gained weight. He follows with the local [place] for primary care and sees the [place] in [place] yearly for cardiology. In the ED VS are stable, BNP >69504, Troponin is 0.01. EKG is paced rhythm. He received Lasix, Nitro and Aspirin. He is resting comfortably. He will be admitted for further workup and treatment. Past Medical/Surgical History Medical Problems: (1) Anemia Status: Chronic (2) CAD (coronary artery disease) Status: Chronic (3) CHF (congestive heart failure) Status: Chronic (4) CKD (chronic kidney disease) Status: Chronic (5) COPD (chronic obstructive pulmonary disease) Status: Chronic (6) DM2 (diabetes mellitus, type 2) Status: Chronic (7) Heart attack Status: Resolved (8) HLD (hyperlipidemia) Status: Chronic (9) Pacemaker Status: Chronic Surgical Problems: (1) H/O knee surgery Status: Chronic (2) H/O rhinoplasty Status: Chronic (3) History of appendectomy Status: Chronic (4) History of hip surgery Status: Chronic Family History FHx: cancer Heart disease Social History Smoking Status: Current Every Day Smoker Alcohol Use: occasionally Marital Status: Housing status: lives alone Occupational Status: retired Allergies Coded Allergies: No Known Allergies (Unverified , 01/20/17) Home Medications Scheduled Ascorbic Acid (Vitamin C), 500 MG PO BID Aspirin (Ecotrin), 325 MG PO DAILY Carvedilol (Coreg), 3.125 MG PO BID Cholecalciferol (Vitamin D3), 1,000 INTER.UNIT PO DAILY Digoxin (Digoxin), 0.125 MG PO MWF Ferrous Sulfate (Iron), 325 MG PO BID Furosemide (Lasix), 40 MG PO DAILY Hydralazine HCl (Hydralazine HCl), 25 MG PO TID Omeprazole (Prilosec), 20 MG PO DAILY Simvastatin (Zocor), 20 MG PO QPM Tamsulosin HCl (Tamsulosin HCl), 0.4 MG PO HS Tiotropium Ruth (Spiriva Handihaler), 1 CAP INH DAILY Review of Systems Constitutional: No chills, No fever Eyes: No worsening of vision ENT: No nasal symptoms Respiratory: + shortness of breath, No cough Cardiovascular: + edema, No chest pain, No palpitations Abdomen: No constipation, No diarrhea, No nausea, No pain, No vomiting Musculoskeletal: + swelling, No calf pain Genitourinary - Male: No dysuria Neurologic: No numbness/tingling, No vertigo Psychiatric: No depression symptoms Endocrine: No excessive thirst, No fatigue Hematologic / Lymphatic: No abnormal bleeding/bruising, No clotting problems Integumentary: No itch, No rash Allergic / Immunologic: No environmental allergies Physical Ex - H&P Physical Exam Vital Signs Date Time Temp Pulse Resp B/P Pulse Ox O2 Delivery O2 Flow Rate FiO2 01/20/17 18:09 72 22 130/83 94 Room Air 01/20/17 17:03 36.7 75 21 121/69 96 Room Air General Appearance: + pertinent finding (Very pleasant WD/WN 71 year old male lying in bed in NAD ) Head: normocephalic, atraumatic Eyes: PERRL, EOMI, sclerae normal ENT: hearing grossly normal, pharynx normal Neck: supple, no JVD Respiratory/Chest: chest non-tender, no respiratory distress, no accessory muscle use, + pertinent finding (Coarse breath sounds, trace rhonchi/wheezes likely secondary to COPD/tobacco abuse ) Cardiovascular: regular rate, rhythm, no gallop, no JVD, no murmur, normal peripheral pulses Abdomen/GI: normal bowel sounds, non tender, soft Back: normal inspection, no muscle spasm Extremities/Musculoskelatal: no calf tenderness, normal capillary refill, + pedal edema (+2, BL ) Neurologic/Psych: no motor/sensory deficits, alert, oriented x 3 Skin: normal color, warm/dry, no rash Lymphatic: no adenopathy Diagnostics - H&P Diagnostics Laboratory Results Results Past 24 Hours Test 01/20/17 18:00 Range/Units White Blood Count 4.85 4.8-10.8 K/uL Red Blood Count 2.76 4.7-6.1 M/uL Hemoglobin 9.7 14.0-18.0 g/dL Hematocrit 30.0 42-52 % Mean Corpuscular Volume 108.7 80-100 fL Mean Corpuscular Hemoglobin 35.1 25-34 pg Mean Corpuscular Hemoglobin Concent 32.3 32-36 g/dl Platelet Count 104 130-400 K/uL Mean Platelet Volume 10.0 7.4-10.4 fL Neutrophils (%) (Auto) 80.7 % Lymphocytes (%) (Auto) 13.6 % Monocytes (%) (Auto) 4.3 % Eosinophils (%) (Auto) 0.8 % Basophils (%) (Auto) 0.2 % Neutrophils # (Auto) 3.91 1.4-6.5 K/uL Lymphocytes # (Auto) 0.66 1.2-3.4 K/uL Monocytes # (Auto) 0.21 0.11-0.59 K/uL Eosinophils # (Auto) 0.04 0-0.5 K/uL Basophils # (Auto) 0.01 0-0.2 K/uL RDW Standard Deviation 68.4 36.4-46.3 fL RDW Coefficient of Variation 17.4 11.5-14.5 % Immature Granulocyte % (Auto) 0.4 % Immature Granulocyte # (Auto) 0.02 0.00-0.02 K/uL Sodium Level 143 136-145 mmol/L Potassium Level 4.0 3.5-5.1 mmol/L Chloride Level 111 98-107 mmol/L Carbon Dioxide Level 25 21-32 mmol/L Anion Gap 7.0 3-11 mmol/L Blood Urea Nitrogen 40 7-18 mg/dl Creatinine 2.20 0.60-1.40 mg/dl Est Creatinine Clear Calc Drug Dose 33.8 ml/min Estimated GFR () 33.9 Estimated GFR (Non- 29.3 BUN/Creatinine Ratio 18.1 10-20 Random Glucose 93 70-99 mg/dl Calcium Level 8.8 8.5-10.1 mg/dl Troponin I 0.061 0-0.045 ng/ml Pro-B-Type Natriuretic Peptide > 06287 0-900 pg/ml Diagnostic Radiology CXR Per radiologist read: IMPRESSION: 1. Moderate cardiomegaly with mild pulmonary edema. 2. Trace right pleural effusion. DOPPLER US Per radiologist read: IMPRESSION: No evidence of deep venous thrombus within the bilateral lower extremities. EKG Dual paced rhythm 70 BPM, QTc 455 Impression - H&P Impression Assessment and Plan 71 [facility] complaining of worsening peripheral edema despite increased lasix use x 3 day s PERIPHERAL EDEMA likely ACUTE ON CHRONIC CHF EXACERBATION -Admit to tele -Per [facility] records severe systolic dysfunction s/p ICD, taking Lasix 40mg daily but increase to 80mg daily this week. unsure of Diastolic component of CHF -Presents with BNP >47856, peripheral edema. CXR with mild pulmonary congestion , Doppler US negative for DVT -Update echo -interrogate pacemaker -serial Jose Antonio, EKGs -Lasix 40mg IV given in ED will continue with 40mg IV BID -continue BB, digoxin -check digoxin level -I&Os, daily weights -AHA, low sodium diet, 2000ml fluid restriction -cardiology consult placed for further recommendations -CBC, PRP, Mg in AM -Monitor renal function closely - has underlying CKD ELEVATED TROPONIN H/O CAD -denies chest pain, new SOB -EKG paced rhythm -Troponin 0.061 -? troponin leak -Serial Jose Antonio, EKGs -update Echo -continue ASA, Statin, BB -monitor in tele CKD STAGE 3 -Crea 2.2 baseline when [facility] to [facility] -follow PRP -avoid nephrotoxic agents as able ANEMIA OF CHRONIC DISEASE -Hgb 9.5 baseline per [place] records on paper chart -continue iron, vitamin C -follow H&H HTN -stable -continue Hydralazine, BB DIET CONTROLLED DM2 -update a1c -consistent carb diet TOBACCO ABUSE/COPD -Cessation counseling given -Nicotine patch ordered -continue home inhalers GERD -continue PPI BPH -continue Flomax DVT PROPHYLAXIS: Sq heparin CODE STATUS: FULL CODE DISPO:In my clinical judgment this beneficiary meets acute admission criteria, established by [facility], that includes being hospitalized through two midnights. Patient seen in collaboration with Dr. Deluca Attending Note: Patient is a 71 yr old male with PMH of CAD, CHF S/P ICD, CKD, COPD and other comorbidities presents from [place] for evaluation of worsening B/L Leg swelling and SOB on exertion. He is on oxygen 2l NC at baseline but not very complaint. He has been doubling his oral diuretics at home since last 3 days. He does not watch his fluid/salt intake. His BNP is elevated and CXR is consistent with mild pulmonary edema. Venous doppler is negative for DVT Physical Exam: Vitals signs as noted above General Appearance:Moderately built and nourished, no apparent distress Head: normocephalic, Atraumatic Respiratory/Chest: Coarse breath sounds, No accessory muscle use Cardiovascular: S1, S2, No murmur Abdomen/GI:Soft, Non tender, Bowel sounds present Extremities/Musculoskelatal:+ B/L LE edema Neurologic/Psych:AAOX3, grossly no focal neurological deficits Assessment and Plan: Acute on chronic CHF Exacerbation Start IV Lasix 40 mg BID Check ECHO I/Os, daily weight Monitor electrolytes Fluid/Salt restriction Oxygen support continue BB, digoxin Elevated Troponin: Denies chest pain Insetting of CKD and CHF Trend troponin Check Resting ECHO for wall motion abnormality continue ASA, Statin, BB I personally reviewed the record. Patient is interviewed and examined at bedside. Patient's care is coordinated with Moira Benites PA-C. Please refer to the documentation above for details of patient's presentation and for discussion of other issues. VTE Prophylaxis VTE Risk Assessment Done? Y/N: Yes Risk Level: Moderate Physical Exam (per Admitting): General Appearance: + pertinent finding (Very pleasant WD/WN 71 year old male lying in bed in NAD ) Head: normocephalic, atraumatic Eyes: PERRL, EOMI, sclerae normal ENT: hearing grossly normal, pharynx normal Neck: supple, no JVD Respiratory/Chest: chest non-tender, no respiratory distress, no accessory muscle use, + pertinent finding (Coarse breath sounds, trace rhonchi/wheezes likely secondary to COPD/tobacco abuse ) Cardiovascular: regular rate, rhythm, no gallop, no JVD, no murmur, normal peripheral pulses Abdomen/GI: normal bowel sounds, non tender, soft Back: normal inspection, no muscle spasm Extremities/Musculoskelatal: no calf tenderness, normal capillary refill, + pedal edema (+2, BL ) Neurologic/Psych: no motor/sensory deficits, alert, oriented x 3 Skin: normal color, warm/dry, no rash Lymphatic: no adenopathy Hospital Course Acute decompensated systolic congestive heart failure -Presents with BNP >25678, peripheral edema. CXR with mild pulmonary congestion , Doppler US negative for DVT -Received IV Lasix changed to Po Lasix 60mg daily -Coreg changed to Toprol XL -Diuresed a lot -No arrhythmia in Tele Echo done on 01/21 The left ventricle is severely dilated. * There is global thinning of the left ventricular cowan. * Left ventricular systolic function is severely reduced. * Ejection Fraction = <15%. * Spontaneous contrast is noted consistent with low flow state. * The right ventricular systolic function is moderately reduced. * The left atrial size is normal. * Right atrial size is normal. * There is mild to moderate mitral regurgitation. * There is mild tricuspid regurgitation. Appreciate Cardiology input and recommendation Discussed the pros and cons of Anticoagulation with the patient-He declined to have Coumadin Clinically a lot better Will be discharged today ELEVATED TROPONIN possible related to CKD -denies chest pain -EKG paced rhythm -No ACS --clinically stable CKD STAGE 3 -Crea 2.2 baseline [facility] -Creatine increase to 2.6 on 01/23/17 -Lasix IV 40 BID changed to PO lasix 60mg daily -avoid nephrotoxic agents as able -Kidney function is improving and Creatinine is is a little better today at 2.5 ANEMIA OF CHRONIC DISEASE Stable continue monitor-Hb >9.0 HTN -stable -continue Hydralazine, BB DIET CONTROLLED DM2 -update a1c-6.0 -consistent carb diet -diabetes is well controlled TOBACCO ABUSE with H/O COPD -Cessation counseling given -Nicotine patch ordered -continue home inhalers GERD -continue PPI BPH -continue Flomax DVT PROPHYLAXIS: Sq heparin CODE STATUS: FULL CODE Consultants: cardio DISPOSITION Discharge today Follow up appointment is made Total time spent on discharge = 35 minutes This includes examination of the patient, discharge planning, medication reconciliation, and communication with other providers. Discharge Instructions Date of Service January 24, 2017. Admission Reason for Admission: Chf, Elevated Troponin Discharge Discharge Diagnosis / Problem: Acute Decompensated Systolic Congestive Herat Failure Discharge Goals Goal(s): Prevent Disease Progression Activity Recommendations Activity Limitations: resume your previous activity . Instructions / Follow-Up Instructions / Follow-Up [facility] Parikh at [facility] on Monday ,January 27 at 1:30PM.Will need close Cardiology follow up as well Current Hospital Diet Patient's current hospital diet: AHA Diet (Heart Healthy), Low Sodium Diet (2gm Na), Diabetes Type 2 Diet Discharge Diet Recommended Diet: Low Sodium Diet (2gm Na), Diabetes Type 2 Diet Fluid Restriction: 1500 ml (6 cups) Pending Studies Studies pending at discharge: no Laboratory Results Hemoglobin A1c Test 01/21/17 06:23 Range/Units Estimated Average Glucose 126 mg/dl Hemoglobin A1c 6.0 H 4.5-5.6 % Lipid Panel Test 01/21/17 06:23 Range/Units Triglycerides Level 35 0-150 mg/dl Cholesterol Level 62 0-200 mg/dl HDL Cholesterol 27 mg/dl Cholesterol/HDL Ratio 2.3 LDL Cholesterol, Calculated 28 mg/dl Medical Emergencies . Who to Call and When: Medical Emergencies: If at any time you feel your situation is an emergency, please call 911 immediately. . Non-Emergent Contact Non-Emergency issues call your: Primary Care Provider . . "Provider Documentation" section prepared by Kwadwo Guadarrama. . VTE Core Measure Inpt VTE Proph given/why not?: Unfractionated heparin SQ <Electronically signed by Kwadwo Guadarrama M.D.> Signed: 01/24/17 [id number] Additional Copies To Fede Parikh D.O.
== END 2017-01-24 17:30 | disposition home or self-care (01) | DRG 291 ==
LOC: ENRESERVDT → ENRESERVTM → C.EDB 16:58 → C.2T 19:31
PROVIDERS: ADMIT Internal Medicine; ATTEND Internal Medicine
DX: I13.0 Hypertensive heart and chronic kidney disease with heart failure and stage 1 through stage 4 chronic kidney disease, or unspecified chronic kidney disease (principal); I50.23 Acute on chronic systolic (congestive) heart failure; N17.9 Acute kidney failure, unspecified; I25.10 Atherosclerotic heart disease of native coronary artery without angina pectoris; N18.3 Chronic kidney disease, stage 3 (moderate); E11.21 Type 2 diabetes mellitus with diabetic nephropathy; E78.5 Hyperlipidemia, unspecified; F17.200 Nicotine dependence, unspecified, uncomplicated; D63.8 Anemia in other chronic diseases classified elsewhere; J44.9 Chronic obstructive pulmonary disease, unspecified; N40.0 Benign prostatic hyperplasia without lower urinary tract symptoms; I25.5 Ischemic cardiomyopathy; I25.2 Old myocardial infarction; Z95.810 Presence of automatic (implantable) cardiac defibrillator; Z79.82 Long term (current) use of aspirin